=== PATIENT | male | born 1950 | race Caucasian/White ===

== ENCOUNTER 2016-12-31 16:42 | Emergency (ER) | payer MEDICARE ==
[2016-12-31] MEDS ORDERED: Marcaine 0.5% SDV 10 ML IJ ONE (16:56)
[2016-12-31] MEDS ORDERED: Marcaine 0.5% SDV 10 ML ONE (16:57)
[2016-12-31 17:15] VITALS: O2SAT 95
--- NOTE | 2016-12-31 17:25 | ERPHSYRPT ---
- History of Present Illness Time Seen by Provider: 12/31/16 16:46 Source: patient, family Exam Limitations: no limitations Patient Subjective Stated Complaint: PT REPORTS A SHEET OF GLASS FELL OUT OF WINDOW ONTO RIGHT BIG TOE-REPORTS DULL PAIN ET LAC-PT HAS HX OF POOR CIRCULATION TO FOOT Triage Nursing Assessment: PT PINK WARM ET DRY-LAC NOTED WITH BLEEDING CONTROLLED-CAP REFILL 5 SECONDS-EXTREMITY SWOLLEN ET DARKENED-PT REPORTS THIS TO BE NORMAL FOR HIM Physician History: the patient accidentally dropped the window from a door on his right great toe a few minutes ago; no other injuries and no other acute complaints; pain and laceration of the right great toe; mild bleeding; local pain only Method of Injury: direct blow Occurred: just prior to arrival Quality: constant Severity of Pain-Max: severe Severity of Pain-Current: moderate Lower Extremities Pain: 1st toe: right (2.5 cm laceration dorsum proximal phalanx) Modifying Factors: Improves With: cold therapy, immobilization, movement Associated Symptoms: none Allergies/Adverse Reactions: No Known Drug Allergies Allergy (Verified 12/31/16 16:54) Home Medications: Lorazepam 1 mg [Ativan 1 MG] 2 mg TID 09/14/15 [History] Morphine Sulfate [Morphine Sulfate ER] 100 mg TID 09/14/15 [History] Pravastatin Sodium 20 mg DAILY 09/14/15 [History] Prednisone 5 mg [Deltasone 5 mg] 5 mg DAILY 09/14/15 [History] Tamsulosin HCl 0.4 mg [Flomax 0.4 MG] 0.4 mg pe DAILY 09/14/15 [History] Gabapentin [Neurontin] 800 mg PO TID 12/31/16 [History] Hx Tetanus, Diphtheria Vaccination/Date Given: No Hx Influenza Vaccination/Date Given: Yes Hx Pneumococcal Vaccination/Date Given: No Immunizations Up to Date: Yes - Review of Systems Constitutional: No Symptoms Eyes: No Symptoms Ears, Nose, & Throat: No Symptoms Respiratory: No Cough, No Dyspnea, No Wheezing Cardiac: No Chest Pain, No Palpitations, No PND Abdominal/Gastrointestinal: No Abdominal Pain, No Nausea, No Vomiting, No Diarrhea Genitourinary Symptoms: No Symptoms Musculoskeletal: Injury (right great toe), No Neck Pain, No Fall, No Myalgias Skin: Other (2.5 cm laceration right great toe), No Cellulitis, No Rash Neurological: 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), Parasthesia (lower extremities old) Psychological: No Symptoms Endocrine: No Symptoms Hematologic/Lymphatic: No Symptoms Immunological/Allergic: No Symptoms - Past Medical History Pertinent Past Medical History: Yes Neurological History: Peripheral Neuropathy, Other ENT History: No Pertinent History Cardiac History: No Pertinent History Respiratory History: No Pertinent History Endocrine Medical History: No Pertinent History Musculoskeletal History: Osteoarthritis, Fibromyalgia GI Medical History: No Pertinent History History: No Pertinent History Psycho-Social History: No Pertinent History Male Reproductive Disorders: Other Other Medical History: chronic back pain - Past Surgical History Past Surgical History: Yes Neuro Surgical History: No Pertinent History Cardiac: No Pertinent History Respiratory: No Pertinent History Gastrointestinal: No Pertinent History, Other Genitourinary: No Pertinent History Musculoskeletal: No Pertinent History, Orthopedic Surgery Male Surgical History: No Pertinent History Other Surgical History: spinal.l-5 fracture - Social History Smoking Status: Never smoker Exposure to second hand smoke: No Alcohol Use: None Drug Use: none Patient Lives Alone: No Significant Family History: no pertinent family hx - Nursing Vital Signs Nursing Vital Signs: Initial Vital Signs Temperature 98.7 F Temperature Source Oral Pulse Rate 65 Respiratory Rate 22 Blood Pressure [] 131/70 Pain Intensity 1 - Physical Exam General Appearance: mild distress, alert, other (paraplegic from old neck fracture) Legs Exam: bilateral leg: non-tender, normal inspection, normal range of motion , no evidence of injury Knees Exam: bilateral knee: non-tender, normal inspection, normal range of motion, no evidence of injury Ankle Exam: bilateral ankle: non-tender, normal inspection, normal range of motion, no evidence of injury Foot Exam: right foot: bone tenderness (proximal phalanx right great toe), pain (proximal phalanx right great toe), other (2.5 cm laceration dorsum proximal right great toe), left foot: non-tender, normal inspection, normal range of motion, no evidence of injury Neuro/Tendon Exam: responds to pain, No normal sensation Mental Status Exam: alert, oriented x 3, cooperative Skin Exam: normal color, warm, dry, laceration (right great toe), No rash SpO2 Interpretation: normal SpO2: 95 Oxygen Delivery: Room Air Procedures - Laceration/Wound Repair Right Proximal Dorsal Toe Wound Location: Right (great toe) Wound Length (cm): 2.5 Wound's Depth, Shape: linear, into subcut Wound Explored: in bloodless field Irrigated: Yes Hibiclens Prep: Yes Anesthesia: digital block, marcaine 0.5 Volume Anesthetic (ccs): 3 Wound Repaired With: sutures Suture Size/Type: 4-0 Number of Sutures: 3 Layer Closure?: No Sterile Dressing Applied?: Yes - Course Nursing assessment & vital signs reviewed: Yes - Radiology Exams Right Foot X-ray Interpretation: Interpreted by me, Negative, No Fracture Ordered Tests: Active Orders 24 hr Category Date Time Status Prepare for Sutures STAT Care 12/31/16 16:56 Active Re-Check Vital Signs STAT Care 12/31/16 16:56 Active Sutures STAT Care 12/31/16 16:57 Active Wound Care STAT Care 12/31/16 16:56 Active FOOT (MINIMUM 3 VIEWS) Stat Exams 12/31/16 16:57 Taken Medication Summary Discontinued Medications Generic Name Dose Route Start Last Admin Trade Name Freq PRN Reason Stop Dose Admin Bupivacaine HCl 5 ml 12/31/16 16:56 12/31/16 17:00 Marcaine 0.5% Sdv 10 Ml IJ 12/31/16 16:57 5 ml STAT ONE Administration Bupivacaine HCl Confirm 12/31/16 16:57 Marcaine 0.5% Sdv 10 Ml Administered 12/31/16 16:58 Dose 10 ml .ROUTE .STK-MED ONE Diphtheria/Tetanus/Acell Pertussis 0.5 ml 12/31/16 17:30 12/31/16 17:31 Adacel Vial IM 12/31/16 17:31 0.5 ml .ONCE ONE Administration Diphtheria/Tetanus/Acell Pertussis Confirm 12/31/16 17:29 Adacel Vial Administered 12/31/16 17:30 Dose 0.5 ml IM .STK-MED ONE - Progress Progress: improved, re-examined (after x-ray) Progress Note: 12/31/16 17:23 laceration anesthetized with plain Marcaine for pain control; x-ray pending; we' ll clean and repair; at bedside; 12/31/16 17:37 tolerated reapair well; instructions given Counseled pt/family regarding: diagnosis, need for follow-up, rad results - Departure Time of Disposition: 17:38 Departure Disposition: Home Clinical Impression: Laceration of right great toe Condition: Stable Critical Care Time: No Referrals: BJ PAT [Primary Care Provider] - Instructions: Laceration Repair -- Simple Additional Instructions: RICE; Suture removal 7 days; clean, dry, bacitracin; motirn otc Follow-up with family doctor as directed. Call for appointment. Return if any problems. If you smoke please stop. Call or follow up with your family doctor for assistance if you need it to stop. Please wear your seatbelt when driving. Have a nice day. Thank you for allowing us to participate in your care today. :o) Dr Paul Rosario
[2016-12-31] MEDS ORDERED: Adacel Vial IM ONE ×2 (17:29→17:30)
[2016-12-31 17:40] VITALS: BP 128/64; PULSE 61
--- NOTE | 2017-01-01 08:51 | XRAY ---
Indication: Great toe pain/laceration following injury. Comparison: None 3 nonweightbearing views of the right foot demonstrates mild forefoot soft tissue swelling, mild first MTP degenerative changes, distal great toe base osteophyte, tiny heel spurs, midfoot accessory ossicles, lower leg vascular calcifications, and partially visualized tibial orthopedic hardware. No acute fracture, dislocation, or suspicious bony lesions.
== END 2016-12-31 17:45 | disposition home or self-care (01) ==
LOC: ED 16:42
PROC: 0HQMXZZ Repair Right Foot Skin, External Approach (ICD-10-PCS; principal; 2016-12-31)
DX: S91.111A Laceration without foreign body of right great toe without damage to nail, initial encounter (principal); W22.8XXA Striking against or struck by other objects, initial encounter
CPT/HCPCS: 12001; 73630; 90471; 90715; 99282; 99283

== ENCOUNTER 2017-12-30 14:10 | Emergency (ER) | payer MEDICARE ==
[2017-12-30 15:11] VITALS: BP 129/71; O2SAT 96
[2017-12-30] MEDS ORDERED: DUONEB 0.5-3 MG/3 ml Neb IH ONE ×2 (15:22→15:54)
--- NOTE | 2017-12-30 15:26 | ERPHSYRPT ---
- History of Present Illness Time Seen by Provider: 12/30/17 15:14 Source: patient, family () Patient Subjective Stated Complaint: cough, congestion x4 days, denies vomiting , denies diarrhead, denies fever Triage Nursing Assessment: pt to er per own wheelchair, pt has hx of spinal injury 6 years ago, cough and congestion x4 days with green sputum, prior to this had dry cough, fell approx 3 weeks ago out of his wheelchair, struck right ribs on chair wheels, been progressively getting less painful, cough started shortly after the fall Physician History: CC: cough Hx: 67 y/o patient of Dr Neil with partial paraplegia and hx of COPD. He has few day hx of cough, worse with sputum. No fever or chills. Uses inhaler at home. Nonsmoker. Not diabetic. Fell a few weeks ago and had some pain in right. Normal urination. No chest pains. Allergies/Adverse Reactions: No Known Drug Allergies Allergy (Verified 12/31/16 16:54) Home Medications: Lorazepam 1 mg [Ativan 1 MG] 2 mg TID 09/14/15 [History] Pravastatin Sodium 20 mg DAILY 09/14/15 [History] Prednisone 5 mg [Deltasone 5 mg] 5 mg DAILY 09/14/15 [History] Tamsulosin HCl 0.4 mg [Flomax 0.4 MG] 0.4 mg pe DAILY 09/14/15 [History] Gabapentin [Neurontin] 800 mg PO TID 12/31/16 [History] Hx Tetanus, Diphtheria Vaccination/Date Given: No Hx Influenza Vaccination/Date Given: Yes Hx Pneumococcal Vaccination/Date Given: Yes - Review of Systems Constitutional: Fatigue, Malaise, No Fever, No Chills Eyes: No Symptoms Ears, Nose, & Throat: No Symptoms, Nose Congestion Respiratory: Cough, No Dyspnea Cardiac: No Chest Pain Abdominal/Gastrointestinal: No Nausea, No Vomiting Skin: No Rash Neurological: No Headache All Other Systems: Reviewed and Negative - Past Medical History Pertinent Past Medical History: Yes Neurological History: Paralysis ENT History: No Pertinent History Cardiac History: No Pertinent History Respiratory History: Bronchitis Endocrine Medical History: No Pertinent History Musculoskeletal History: Other GI Medical History: No Pertinent History History: No Pertinent History Psycho-Social History: No Pertinent History Male Reproductive Disorders: No Pertinent History Other Medical History: 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 struck head on sink causing cervial fracture, 1994 fell from barn roof and sufered ruptured spleen and fractured spine in three placed - Past Surgical History Past Surgical History: Yes Neuro Surgical History: No Pertinent History Cardiac: No Pertinent History Respiratory: No Pertinent History Gastrointestinal: No Pertinent History Genitourinary: No Pertinent History Musculoskeletal: Other Male Surgical History: No Pertinent History Other Surgical History: spinal surgery, plate and screws right lower leg - Social History Smoking Status: Former smoker Exposure to second hand smoke: No Alcohol Use: None Drug Use: none Patient Lives Alone: No Significant Family History: no pertinent family hx - Nursing Vital Signs Nursing Vital Signs: Initial Vital Signs Temperature 98.0 F 12/30/17 15:03 Pulse Rate 66 12/30/17 15:03 Respiratory Rate 22 12/30/17 15:03 Blood Pressure 129/71 12/30/17 15:03 O2 Sat by Pulse Oximetry 96 12/30/17 15:03 Pain Scale Pain Intensity 0 - Physical Exam General Appearance: alert Eye Exam: PERRL/EOMI Ears, Nose, Throat Exam: normal ENT inspection, moist mucous membranes Neck Exam: normal inspection, non-tender, supple Respiratory Exam: diminished breath sounds, No crackles/rales, No rhonchi, No wheezing Cardiovascular Exam: regular rate/rhythm, No murmur Gastrointestinal/Abdomen Exam: soft, No tenderness, No distention, No mass, No guarding, No ecchymosis Male Genitalia Exam: normal genitalia Back Exam: normal inspection Extremity Exam: pedal edema Neurologic Exam: alert, oriented x 3, cooperative, sensation nml, No motor deficits Skin Exam: warm, dry, No rash SpO2 Interpretation: normal SpO2: 96 Oxygen Delivery: Room Air - Course Nursing assessment & vital signs reviewed: Yes - Radiology Exams cxr X-ray Interpretation: Reviewed by me, No Pneumonia Ordered Tests: Active Orders 24 hr Category Date Time Status CHEST 2 VIEWS (PA AND LAT) Stat Exams 12/30/17 15:23 Taken Respiratory Nebulizer STAT RT 12/30/17 15:23 Active Medication Summary Discontinued Medications Generic Name Dose Route Start Last Admin Trade Name Freq PRN Reason Stop Dose Admin Albuterol/Ipratropium 3 ml 12/30/17 15:22 12/30/17 15:56 Duoneb 0.5-3 Mg/3 Ml Neb IH 12/30/17 15:23 3 ml STAT ONE Administration Albuterol/Ipratropium Confirm 12/30/17 15:54 Duoneb 0.5-3 Mg/3 Ml Neb Administered 12/30/17 15:55 Dose 3 ml IH .STK-MED ONE - Progress Progress Note: 12/30/17 16:00 Will Rx prednisone and doxy. He has inhaler. RT making sure he has aerochamber. Dr Neil office will see him Friday at 10:30AM [place]. Counseled pt/family regarding: diagnosis, need for follow-up, rad results - Departure Time of Disposition: 16:00 Departure Disposition: Home Clinical Impression: Acute exacerbation of chronic bronchitis Condition: Stable Critical Care Time: No Referrals: ZEUS NEIL MD [Primary Care Provider] - Instructions: Acute Bronchitis, Adult (DC), Chronic Obstructive Pulmonary Disease (COPD), Including Emphysema Additional Instructions: Rx doxycycline- [facility] Rx prednisone- [facility] Use your albuterol inhaler every 4 [address]. Follow up with Dr Neil at [place] office Friday at 10:30 AM. Return for problems or concerns. Prescriptions: Doxycycline Hyclate 100 mg [Vibramycin 100 MG] 100 mg PO BID #20 tab Prednisone 20 mg [Deltasone 20 mg] 2 tab PO DAILY #10 tablet
[2017-12-30 16:08] VITALS: PULSE 62
--- NOTE | 2017-12-30 16:15 | XRAY ---
Indication: Cough 5 days. Comparison: September 14, 2015. PA/lateral chest remains hyperinflated and clear. Heart is not enlarged. Bony thorax intact again with mild osteopenia, degenerative changes, and new lower cervical fusion hardware. Impression: Nonacute hyperinflated chest.
== END 2017-12-30 16:47 | disposition home or self-care (01) ==
LOC: ED 14:10
DX: J44.1 Chronic obstructive pulmonary disease with (acute) exacerbation (principal); G82.20 Paraplegia, unspecified; Z79.899 Other long term (current) drug therapy; Z87.891 Personal history of nicotine dependence
CPT/HCPCS: 71046; 94150; 94640; 94760; 99283; A9270-GY

== ENCOUNTER 2018-12-01 09:48 | Emergency (ER) | payer MEDICARE ==
[2018-12-01] MEDS ORDERED: BABY ASPIRIN 81 MG CHEW PO ONE (10:10)
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
[2018-12-01 10:34] LABS: BASOPHIL % 0.6 % (0.0-0.4); Basophil (Absolute #) 0.06 (0-0.4); Eosinophil % 6.9 % (0.00-5.0); Eosinophil (Absolute #) 0.66 (0-0.5); Granulocyte Absolute (ANC) 4.63 (1.4-6.9); Granulocytes % 48.6 % (36.0-66.0); Hematocrit 38.5 % (42-50); Hemoglobin 13.2 gm/dl (12.5-18.0); Lymphocytes % 33.6 % (24.0-44.0); Mean Corpuscular Hemoglobin 32.9 pg (26-32); Mean Corpuscular Hgb Concent. 34.3 g/dl (32-36); Mean Platelet Volume 9.5 fl (6-9.5); Monocyte (Absolute #) 0.98 (0.0-1.3); Monocytes % 10.3 % (0.0-12.0); Platelet Count 210 K/mm3 (150-450); Red Blood Count 4.01 M/mm3 (4.1-5.6); Red Cell Distribution Width 12.6 % (11.5-14.0); White Blood Count 9.5 K/mm3 (4.0-10.5)
--- NOTE | 2018-12-01 10:38 | XRAY ---
Indication: Right-sided chest pain. Comparison: December 30, 2017. Portable chest again demonstrates normal heart and lungs. Bony thorax intact again with moderate degenerative changes and lower cervical fusion surgery. No new/acute findings.
[2018-12-01 10:40] LABS: INR 0.9 (0.8-3.0); PROTIME 10.5 SECONDS (8.83-12.87)
[2018-12-01 10:43] LABS: PTT 26.5 SECONDS (24.1-36.1)
[2018-12-01 10:53] LABS: ALKALINE PHOSPHATASE 61 U/L (38-126); ANION GAP 11.8 MEQ/L (5-15); BLOOD UREA NITROGEN 17 mg/dL (9-20); CHLORIDE 101 mmol/L (98-107); Calcium 9.2 mg/dL (8.4-10.2); Carbon Dioxide 28 mmol/L (22-30); Creatinine 1 0.92 mg/dL (0.66-1.25); Glucose 90 mg/dL (74-106); NT PRO BNP 151 pg/mL (0-900); SGOT/AST 35 U/L (17-59); SGPT/ALT 25 U/L (0-50); SODIUM 137 mmol/L (137-145); Total Protein 7.1 g/dL (6.3-8.2)
[2018-12-01 12:11] VITALS: O2SAT 97
--- NOTE | 2018-12-01 12:11 | XRAY ---
Indication: Chest pain, short of breath, and congestion. Elevated d-dimer. Multiple contiguous axial images obtained through the chest using 80 cc Isovue 370 contrast and PE protocol. Comparison: None There is satisfactory opacification of the pulmonary arteries to includes the lobar and segmental branches. No filling defect or pulmonary embolus. Heart is not enlarged. Aorta is normal in course and caliber. No pathologic mediastinal/hilar lymphadenopathy. Lungs demonstrates mild bilateral dependent atelectasis. No suspicious pulmonary mass, infiltrate, or effusion. Bony thorax demonstrates moderate degenerative changes throughout the spine. Limited upper abdomen demonstrates a few gallstones, largest 1.3 cm. Also partially visualized 7 cm right renal cyst. Impression: 1. Negative pulmonary embolus. No acute cardiopulmonary abnormalities. 2. Incidental gallstones and partially visualized right renal cyst. CT DI 28.14
--- NOTE | 2018-12-01 12:16 | XRAY ---
Indication: Bilateral leg swelling. Elevated d-dimer. Two-dimensional sonogram and color Doppler imaging of the major venous vessels of the left and right leg was performed. Comparison: August 12, 2014. Again no thrombus seen in the examined deep venous vessels of the left and right leg including greater saphenous veins. Veins demonstrate normal compressibility. Venous waveforms are normal with and without augmentation. Impression: Left and right legs again negative for DVT.
[2018-12-01] MEDS ORDERED: TYLENOL 325 MG PO ONE (12:29)
[2018-12-01] MEDS ORDERED: Zithromax 250 MG TABLET PO ONE (12:30)
[2018-12-01] MEDS ORDERED: TYLENOL 325 MG ONE (12:34)
[2018-12-01] MEDS ORDERED: Zithromax 250 MG TABLET ONE (12:34)
[2018-12-01 12:53] VITALS: BP 146/70; PULSE 51
== END 2018-12-01 13:18 | disposition home or self-care (01) ==
LOC: ED 09:48
DX: R07.89 Other chest pain (principal); R60.9 Edema, unspecified; L97.919 Non-pressure chronic ulcer of unspecified part of right lower leg with unspecified severity; G82.20 Paraplegia, unspecified; J44.9 Chronic obstructive pulmonary disease, unspecified; Z79.899 Other long term (current) drug therapy
CPT/HCPCS: 36000; 36415; 71045; 71260; 80053; 83880; 84484; 85025; 85379; 85610; 85730; 93005; 93041; 93970; 99284; A9270-GY

== ENCOUNTER 2019-03-08 18:11 | Observation (INO) | payer MEDICARE ==
[2019-03-08] MEDS ORDERED: Vancomycin 1GM/ Ns 250ML*** 1 GM/250 ML IVPB IV ONE (19:43)
[2019-03-08] MEDS ORDERED: Sodium Chloride 0.9% 1000 ML 1,000 ML IV SCH ×2 (19:45→22:15)
--- NOTE | 2019-03-08 19:52 | ERPHSYRPT ---
- History of Present Illness Time Seen by Provider: 03/08/19 19:06 Source: patient Exam Limitations: clinical condition Patient Subjective Stated Complaint: states has ulceration on right lower leg for one month. has gotten worse over the past five days. states is now draining clear fluid. Triage Nursing Assessment: to room per w/c. patient is w/c bound from accident years ago. skin w/d, color normal. has 3cm by 2cm open ulcer to right lower leg. culture taken. small amt clear drainage noted. 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 PATIENT COMPLAINS OF MARKED SWELLING OF RIGHT CHAPA AND CALF, DENIES FEVER OR CHILLS. Method of Injury: other (DENIES INJURY) Occurred: last week Quality: constant Severity of Pain-Max: moderate Severity of Pain-Current: moderate Lower Extremities Pain: leg: right Modifying Factors: Improves With: movement Associated Symptoms: other (PAIN) Allergies/Adverse Reactions: No Known Drug Allergies Allergy (Verified 03/08/19 18:45) Home Medications: Pravastatin Sodium 20 mg PO DAILY 09/14/15 [History] Prednisone 5 mg [Deltasone 5 mg] 5 mg PO DAILY 09/14/15 [History] Tamsulosin HCl 0.4 mg [Flomax 0.4 MG] 0.4 mg PO HS 09/14/15 [History] Gabapentin [Neurontin] 1,200 mg PO TID 12/31/16 [History] ALPRAZolam [Alprazolam] 2 mg PO TID 03/08/19 [History] Furosemide 40 mg PO DAILY 03/08/19 [History] Hx Tetanus, Diphtheria Vaccination/Date Given: Yes Hx Influenza Vaccination/Date Given: Yes Hx Pneumococcal Vaccination/Date Given: No - Review of Systems Constitutional: No Fever, No Chills Eyes: No Symptoms Ears, Nose, & Throat: No Symptoms Respiratory: No Symptoms, No Cough, No Dyspnea Cardiac: No Symptoms, No Chest Pain, No Edema, No Syncope Abdominal/Gastrointestinal: No Abdominal Pain, No Nausea, No Vomiting, No Diarrhea Genitourinary Symptoms: No Symptoms, No Dysuria Musculoskeletal: Other (PAIN, SWELLING AND REDNESS), No Back Pain, No Neck Pain Skin: No Rash Neurological: No Dizziness, No Focal Weakness, No Sensory Changes Psychological: No Symptoms Endocrine: No Symptoms All Other Systems: Reviewed and Negative - Past Medical History Pertinent Past Medical History: Yes Neurological History: Paralysis ENT History: No Pertinent History Cardiac History: No Pertinent History Respiratory History: Bronchitis Endocrine Medical History: No Pertinent History Musculoskeletal History: Other GI Medical History: No Pertinent History History: No Pertinent History Psycho-Social History: No Pertinent History Male Reproductive Disorders: No Pertinent History Other Medical History: 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 struck head on sink causing cervial fracture, 1994 fell from barn roof and sufered ruptured spleen and fractured spine in three placed - Past Surgical History Past Surgical History: Yes Neuro Surgical History: No Pertinent History Cardiac: No Pertinent History Respiratory: No Pertinent History Gastrointestinal: No Pertinent History Genitourinary: No Pertinent History Musculoskeletal: Other Male Surgical History: No Pertinent History Other Surgical History: spinal surgery, plate and screws right lower leg - Social History Smoking Status: Former smoker Exposure to second hand smoke: No Alcohol Use: None Drug Use: none Patient Lives Alone: No Significant Family History: no pertinent family hx - Nursing Vital Signs Nursing Vital Signs: Initial Vital Signs Temperature 98.5 F 03/08/19 18:39 Pulse Rate 63 03/08/19 18:39 Respiratory Rate 18 03/08/19 18:39 Blood Pressure 122/65 03/08/19 18:39 O2 Sat by Pulse Oximetry 97 03/08/19 18:39 Pain Scale Pain Intensity 3 - Physical Exam General Appearance: no apparent distress Eyes, Ears, Nose, Throat Exam: normal ENT inspection Neck Exam: normal inspection Cardiovascular/Respiratory Exam: chest non-tender, normal breath sounds Back Exam: normal inspection, normal range of motion Legs Exam: right leg: pain, soft tissue tenderness (THERE IS A 3CM X 6CM ULCERATION WITH CLEAR DRAINAGE, SURROUNDING SWELLING, WARMTH AND ERYTHEMA, CIRCUMFERENCE RIGHT MID CHAPA 37CM COMPARED TO LEFT MID CHAPA CIRCUMFERENCE 32CM) , swelling (MODERAT CALF TENDERNESS) Foot Exam: bilateral foot: other (PEDIS PULSES 2+) Neuro/Tendon Exam: motor deficit (LOWER BILATERAL EXTREMITY PARESIS), sensory deficit Mental Status Exam: alert, oriented x 3 Skin Exam: normal color, warm SpO2: 97 - Radiology Ultrasound Exam Right Venous Lower Extremity Ultrasound: discussed w/radiologist (VENOUS DOPPLER NEGATIVE FOR DVT) Ordered Tests: Active Orders 24 hr Category Date Time Status Up With Assistance ROUTINE Activity 03/08/19 22:10 Ordered Code Status Order ROUTINE Care 03/08/19 22:10 Ordered IV Care Q6H Care 03/08/19 22:10 Ordered IV Insertion STAT Care 03/08/19 19:[address] in Observation ROUTINE Care 03/08/19 22:11 Ordered Vital Signs Q4H Care 03/08/19 22:10 Ordered Regular Diet Diet 03/08/19 Breakfast Ordered VENOUS UNILAT/LIMITED EXTREMIT [US] Stat Exams 03/08/19 Ordered BLOOD CULTURE Stat Lab 03/08/19 20:10 Received CBC W DIFF Stat Lab 03/08/19 19:55 Completed CMP Stat Lab 03/08/19 19:55 Completed CULTURE,WOUND Stat Lab 03/08/19 19:00 Received D-DIMER QUANTITATION Stat Lab 03/08/19 19:55 Completed PT INR [PROTIME WITH INR] Stat Lab 03/08/19 19:55 Completed Transfer Order Routine Transfer 03/08/19 Ordered Medication Summary Generic Name Dose Route Start Last Admin Trade Name Freq PRN Reason Stop Dose Admin Sodium Chloride 1,000 mls @ 250 mls/hr 03/08/19 19:45 03/08/19 20:05 Sodium Chloride 0.9% 1000 Ml IV 04/07/19 19:44 250 mls/hr .Q4H RODRIGUEZ Administration Piperacillin Sod/Tazobactam Sod 3.375 gm in 100 mls @ 200 mls/hr 03/08/19 21: 58 Zosyn 3.375gm/100 Ml D5w IV 03/08/19 22:27 STAT STA Discontinued Medications Generic Name Dose Route Start Last Admin Trade Name Freq PRN Reason Stop Dose Admin Vancomycin HCl 1 gm in 250 mls @ 167 mls/hr 03/08/19 19:43 03/08/19 20:09 Vancomycin 1gm/ Ns 250ml IV 03/08/19 21:12 167 mls/hr STAT ONE Administration Vancomycin HCl Confirm 03/08/19 20:01 Vancomycin 1gm/ Ns 250ml Administered 03/08/19 20:02 Dose 250 mls @ ud IV .STK-MED ONE Morphine Sulfate 4 mg 03/08/19 21:59 Morphine Sulfate 4 Mg Inj IV 03/08/19 22:00 STAT ONE Ondansetron HCl 4 mg 03/08/19 21:59 Zofran 4 Mg/2 Ml Vial IV 03/08/19 22:00 STAT ONE Lab/Rad Data: Laboratory Result Diagrams 03/08/19 19:55 03/08/19 19:55 Laboratory Results 03/08/19 03/08/19 03/08/19 Range/Units 19:55 19:55 19:55 WBC (4.0-10.5) K/mm3 RBC (4.1-5.6) M/mm3 Hgb (12.5-18.0) gm/dl Hct (42-50) % MCV (78-100) fl MCH (26-32) pg MCHC (32-36) g/dl RDW (11.5-14.0) % Plt Count (150-450) K/mm3 MPV (6-9.5) fl Gran % (36.0-66.0) % Eos # (Auto) (0-0.5) Absolute Lymphs (auto) (1.0-4.6) Absolute Monos (auto) (0.0-1.3) Lymphocytes % (24.0-44.0) % Monocytes % (0.0-12.0) % Eosinophils % (0.00-5.0) % Basophils % (0.0-0.4) % Absolute Granulocytes (1.4-6.9) Basophils # (0-0.4) PT 10.8 (8.83-12.87) SECONDS INR 0.93 (0.8-3.0) D-Dimer 529 H* (215-500) ng/mL Sodium 139 (137-145) mmol/L Potassium 4.2 (3.5-5.1) mmol/L Chloride 100 (98-107) mmol/L Carbon Dioxide 31 H (22-30) mmol/L Anion Gap 12.7 (5-15) MEQ/L BUN 16 (9-20) mg/dL Creatinine 0.96 (0.66-1.25) mg/dL Estimated GFR > 60.0 ML/MIN Glucose 87 (74-106) mg/dL Calcium 9.8 (8.4-10.2) mg/dL Total Bilirubin 0.60 (0.2-1.3) mg/dL AST 33 (17-59) U/L ALT 23 (0-50) U/L Alkaline Phosphatase 65 (38-126) U/L Serum Total Protein 7.7 (6.3-8.2) g/dL Albumin 4.2 (3.5-5.0) g/dL 03/08/19 Range/Units 19:55 WBC 9.8 (4.0-10.5) K/mm3 RBC 4.31 (4.1-5.6) M/mm3 Hgb 14.0 (12.5-18.0) gm/dl Hct 41.5 L (42-50) % MCV 96.3 (78-100) fl MCH 32.5 H (26-32) pg MCHC 33.7 (32-36) g/dl RDW 12.9 (11.5-14.0) % Plt Count 202 (150-450) K/mm3 MPV 9.5 (6-9.5) fl Gran % 59.2 (36.0-66.0) % Eos # (Auto) 0.59 H (0-0.5) Absolute Lymphs (auto) 2.38 (1.0-4.6) Absolute Monos (auto) 0.99 (0.0-1.3) Lymphocytes % 24.4 (24.0-44.0) % Monocytes % 10.1 (0.0-12.0) % Eosinophils % 6.0 H (0.00-5.0) % Basophils % 0.3 (0.0-0.4) % Absolute Granulocytes 5.78 (1.4-6.9) Basophils # 0.03 (0-0.4) PT (8.83-12.87) SECONDS INR (0.8-3.0) D-Dimer (215-500) ng/mL Sodium (137-145) mmol/L Potassium (3.5-5.1) mmol/L Chloride (98-107) mmol/L Carbon Dioxide (22-30) mmol/L Anion Gap (5-15) MEQ/L BUN (9-20) mg/dL Creatinine (0.66-1.25) mg/dL Estimated GFR ML/MIN Glucose (74-106) mg/dL Calcium (8.4-10.2) mg/dL Total Bilirubin (0.2-1.3) mg/dL AST (17-59) U/L ALT (0-50) U/L Alkaline Phosphatase (38-126) U/L Serum Total Protein (6.3-8.2) g/dL Albumin (3.5-5.0) g/dL - Progress Progress: improved Progress Note: 03/08/19 22:17 AFTER 2 SETS F BLOOD CULTURES, ADMINISTERED VANCOMYCIN 1GM IVPB Discussed with DrNeymar: Palomo (DISCUSSED WITH DR NEIL AT 2120 FOR OBSERVATION) - Departure Departure Disposition: Observation Clinical Impression: CELLULITIS RIGHT LOWER EXTREMITY, DECUBITUS ULCERATION RIGHT LEG Condition: Stable Critical Care Time: No Referrals: ZEUS NEIL MD [Primary Care Provider] -
[2019-03-08] MEDS ORDERED: Sodium Chloride 0.9% 1000 ML 1,000 ML ONE (20:01)
[2019-03-08] MEDS ORDERED: Vancomycin 1GM/ Ns 250ML*** 250 ML IV ONE (20:01)
[2019-03-08 20:15] LABS: BASOPHIL % 0.3 % (0.0-0.4); Basophil (Absolute #) 0.03 (0-0.4); Eosinophil (Absolute #) 0.59 (0-0.5); Granulocyte Absolute (ANC) 5.78 (1.4-6.9); Granulocytes % 59.2 % (36.0-66.0); Hematocrit 41.5 % (42-50); Lymphocyte (Absolute #) 2.38 (1.0-4.6); Lymphocytes % 24.4 % (24.0-44.0); Mean Cell Volume 96.3 fl (78-100); Mean Corpuscular Hemoglobin 32.5 pg (26-32); Mean Corpuscular Hgb Concent. 33.7 g/dl (32-36); Mean Platelet Volume 9.5 fl (6-9.5); Monocyte (Absolute #) 0.99 (0.0-1.3); Monocytes % 10.1 % (0.0-12.0); Platelet Count 202 K/mm3 (150-450); Red Blood Count 4.31 M/mm3 (4.1-5.6); Red Cell Distribution Width 12.9 % (11.5-14.0); White Blood Count 9.8 K/mm3 (4.0-10.5)
[2019-03-08 20:29] LABS: ALBUMIN 4.2 g/dL (3.5-5.0); ALKALINE PHOSPHATASE 65 U/L (38-126); ANION GAP 12.7 MEQ/L (5-15); BLOOD UREA NITROGEN 16 mg/dL (9-20); CHLORIDE 100 mmol/L (98-107); Calcium 9.8 mg/dL (8.4-10.2); Carbon Dioxide 31 mmol/L (22-30); Creatinine 1 0.96 mg/dL (0.66-1.25); Glucose 87 mg/dL (74-106); Potassium 4.2 mmol/L (3.5-5.1); SGOT/AST 33 U/L (17-59); SGPT/ALT 23 U/L (0-50); SODIUM 139 mmol/L (137-145); Total Protein 7.7 g/dL (6.3-8.2)
[2019-03-08 20:34] LABS: INR 0.93 (0.8-3.0); PROTIME 10.8 SECONDS (8.83-12.87)
[2019-03-08] MEDS ORDERED: Zosyn 3.375GM/100 Ml D5W 3.375 GM/100 ML IVPB IV STA (21:58)
[2019-03-08] MEDS ORDERED: Zofran 4 MG/2 ML VIAL IV ONE (21:59)
[2019-03-08] MEDS ORDERED: MORPHINE SULFATE 4 MG INJ IV ONE (21:59)
[2019-03-08] MEDS ORDERED: MORPHINE SULFATE 2 MG INJ IV PRN (22:10)
[2019-03-08] MEDS ORDERED: TYLENOL 325 MG PO PRN (22:10)
[2019-03-08] MEDS ORDERED: NORCO 5/325 MG PO PRN (22:16)
[2019-03-08] MEDS ORDERED: VANCOCIN 1 GM VIAL*** 1 GM in Sodium Chloride 0.9% 250 ML 250 ML IV SCH (22:30)
[2019-03-08] MEDS ORDERED: Zosyn 3.375GM/100 Ml D5W 3.375 GM/100 ML IVPB IV ONE (22:42)
[2019-03-08] MEDS ORDERED: Zofran 4 MG/2 ML VIAL ONE (22:42)
[2019-03-08] MEDS ORDERED: MORPHINE SULFATE 4 MG INJ ONE (22:42)
[2019-03-09] MEDS ORDERED: Zosyn 3.375GM/100 Ml D5W 3.375 GM/100 ML IVPB IV SCH
[2019-03-09] MEDS: Sodium Chloride 0.9% 1000 ML 1,000 ML IV SCH ×3 (00:05→14:22)
[2019-03-09] MEDS ORDERED: Sodium Chloride 0.9% 1000 ML 1,000 ML ONE (00:36)
[2019-03-09] MEDS ORDERED: NEURONTIN 300 MG ONE (01:16)
[2019-03-09] MEDS ORDERED: XANAX 1 MG PO ONE (02:00)
[2019-03-09] MEDS ORDERED: Flomax 0.4 MG PO ONE (02:00)
[2019-03-09] MEDS ORDERED: Neurontin 400 MG PO ONE (02:00)
[2019-03-09] MEDS ORDERED: TYLENOL 325 MG PO PRN (02:05)
[2019-03-09] MEDS ORDERED: MORPHINE SULFATE 2 MG INJ IV PRN (02:08)
[2019-03-09] MEDS: Zosyn 3.375GM/100 Ml D5W 3.375 GM/100 ML IVPB IV SCH ×4 (05:38→23:17)
--- NOTE | 2019-03-09 08:33 | XRAY ---
Indication: Edema, elevated d-dimer, and ulcer. Two-dimensional sonogram and color Doppler imaging of the major venous vessels of the right leg was performed. Comparison: December 01, 2018. Again no thrombus seen in the examined deep venous vessels of the right leg including greater saphenous vein. Veins demonstrate normal compressibility. Venous waveforms are normal with and without augmentation. Calf demonstrates mild subcutaneous soft tissue edema without focal solid/cystic mass or abnormal fluid collection. Impression: Right leg again negative for DVT. Comment: Preliminary report was given.
--- NOTE | 2019-03-09 09:13 | PCM.HP ---
History of Present Illness - Chief Complaint Chief Complaint: swelling on legs History of Present Illness: is a 68 year old male. has ulceration on right lower leg for one month. has gotten worse over the past five days. states is now draining clear fluid. - Review of Systems Constitutional: No Fever, No Chills Eyes: No Symptoms Ears, Nose, & Throat: No Symptoms Respiratory: No Cough, No Short Of Breath Cardiac: No Chest Pain, No Edema, No Syncope Abdominal/Gastrointestinal: No Abdominal Pain, No Nausea, No Vomiting, No Diarrhea Genitourinary Symptoms: No Dysuria Musculoskeletal: No Back Pain, No Neck Pain Skin: Cellulitis, No Rash Neurological: No Dizziness, No Focal Weakness, No Sensory Changes Psychological: No Symptoms Endocrine: No Symptoms Hematologic/Lymphatic: No Symptoms Immunological/Allergic: No Symptoms Medications & Allergies Home Medications: Home Medication List Pravastatin Sodium 20 mg PO DAILY 09/14/15 [History Confirmed 03/09/19] Prednisone 5 mg [Deltasone 5 mg] 5 mg PO DAILY 09/14/15 [History Confirmed 03/09/19] Tamsulosin HCl 0.4 mg [Flomax 0.4 MG] 0.4 mg PO HS 09/14/15 [History Confirmed 03/09/19] Gabapentin [Neurontin] 1,200 mg PO TID 12/31/16 [History Confirmed 03/09/19] ALPRAZolam [Alprazolam] 2 mg PO TID 03/08/19 [History Confirmed 03/09/19] Furosemide 40 mg PO DAILY 03/08/19 [History Confirmed 03/09/19] Allergies/Adverse Reactions: Allergies Allergy/AdvReac Type Severity Reaction Status Date / Time No Known Drug Allergies Allergy Verified 03/08/19 18:45 - Past Medical History Past Medical History: Yes Neurological History: Paralysis ENT History: No Pertinent History Cardiac History: No Pertinent History Respiratory History: Bronchitis Endocrine Medical History: No Pertinent History Musculoskelatal History: Other GI Medical History: No Pertinent History History: No Pertinent History Pyscho-Social History: No Pertinent History Male Reproductive Disorders: No Pertinent History Comment: 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 struck head on sink causing cervial fracture, 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 - Past Surgical History Past Surgical History: Yes Neuro Surgical History: No Pertinent History Cardiac History: No Pertinent History Respiratory Surgery: No Pertinent History GI Surgical History: No Pertinent History Genitourinary Surgical Hx: No Pertinent History Musculskeletal Surgical Hx: Other Male Surgical History: No Pertinent History Other Surgical History: spinal surgery, plate and screws right lower leg, ruptured disk surgery through neck - Social History Smoking Status: Former smoker Exposure to second hand smoke: Yes Alcohol: None Drug Use: none Significant Family History: no pertinent family hx - Physical Exam Vital Signs: Vital Signs - 24 hr Temp Pulse Resp BP Pulse Ox 03/09/19 08:00 98.1 F 66 18 139/63 96 03/09/19 04:00 97.8 F 61 18 131/63 93 L 03/08/19 23:30 98.3 F 60 18 143/63 95 03/08/19 23:20 98.3 F 60 18 143/63 95 03/08/19 22:40 63 18 156/78 96 03/08/19 22:17 97 03/08/19 18:39 98.5 F 63 18 122/65 97 General Appearance: no apparent distress, alert Neurologic Exam: alert, oriented x 3, cooperative, normal mood/affect, nml cerebellar function, nml station & gait, sensation nml, No motor deficits Eye Exam: PERRL/EOMI, eyes nml inspection Ears, Nose, Throat Exam: normal ENT inspection, TMs normal, pharynx normal, moist mucous membranes Neck Exam: normal inspection, non-tender, supple, full range of motion Respiratory Exam: normal breath sounds, lungs clear, No respiratory distress Cardiovascular Exam: regular rate/rhythm, normal heart sounds, normal peripheral pulses Gastrointestinal/Abdomen Exam: soft, normal bowel sounds, No tenderness, No mass Back Exam: normal inspection, normal range of motion, No CVA tenderness, No vertebral tenderness Extremity Exam: normal inspection, normal range of motion, pelvis stable Skin Exam: other (cellulitis), No rash Lymphatic Exam: No adenopathy Results - Labs Lab/Micro Results: Lab Results-Last 24 Hours 03/08/19 03/08/19 03/08/19 Range/Units 19:55 19:55 19:55 WBC 9.8 (4.0-10.5) K/mm3 RBC 4.31 (4.1-5.6) M/mm3 Hgb 14.0 (12.5-18.0) gm/dl Hct 41.5 L (42-50) % MCV 96.3 (78-100) fl MCH 32.5 H (26-32) pg MCHC 33.7 (32-36) g/dl RDW 12.9 (11.5-14.0) % Plt Count 202 (150-450) K/mm3 MPV 9.5 (6-9.5) fl Gran % 59.2 (36.0-66.0) % Eos # (Auto) 0.59 H (0-0.5) Absolute Lymphs (auto) 2.38 (1.0-4.6) Absolute Monos (auto) 0.99 (0.0-1.3) Lymphocytes % 24.4 (24.0-44.0) % Monocytes % 10.1 (0.0-12.0) % Eosinophils % 6.0 H (0.00-5.0) % Basophils % 0.3 (0.0-0.4) % Absolute Granulocytes 5.78 (1.4-6.9) Basophils # 0.03 (0-0.4) PT (8.83-12.87) SECONDS INR (0.8-3.0) D-Dimer 529 H* (215-500) ng/mL Sodium 139 (137-145) mmol/L Potassium 4.2 (3.5-5.1) mmol/L Chloride 100 (98-107) mmol/L Carbon Dioxide 31 H (22-30) mmol/L Anion Gap 12.7 (5-15) MEQ/L BUN 16 (9-20) mg/dL Creatinine 0.96 (0.66-1.25) mg/dL Estimated GFR > 60.0 ML/MIN Glucose 87 (74-106) mg/dL Calcium 9.8 (8.4-10.2) mg/dL Total Bilirubin 0.60 (0.2-1.3) mg/dL AST 33 (17-59) U/L ALT 23 (0-50) U/L Alkaline Phosphatase 65 (38-126) U/L Serum Total Protein 7.7 (6.3-8.2) g/dL Albumin 4.2 (3.5-5.0) g/dL 05/13/19 Range/Units 19:55 WBC (4.0-10.5) K/mm3 RBC (4.1-5.6) M/mm3 Hgb (12.5-18.0) gm/dl Hct (42-50) % MCV (78-100) fl MCH (26-32) pg MCHC (32-36) g/dl RDW (11.5-14.0) % Plt Count (150-450) K/mm3 MPV (6-9.5) fl Gran % (36.0-66.0) % Eos # (Auto) (0-0.5) Absolute Lymphs (auto) (1.0-4.6) Absolute Monos (auto) (0.0-1.3) Lymphocytes % (24.0-44.0) % Monocytes % (0.0-12.0) % Eosinophils % (0.00-5.0) % Basophils % (0.0-0.4) % Absolute Granulocytes (1.4-6.9) Basophils # (0-0.4) PT 10.8 (8.83-12.87) SECONDS INR 0.93 (0.8-3.0) D-Dimer (215-500) ng/mL Sodium (137-145) mmol/L Potassium (3.5-5.1) mmol/L Chloride (98-107) mmol/L Carbon Dioxide (22-30) mmol/L Anion Gap (5-15) MEQ/L BUN (9-20) mg/dL Creatinine (0.66-1.25) mg/dL Estimated GFR ML/MIN Glucose (74-106) mg/dL Calcium (8.4-10.2) mg/dL Total Bilirubin (0.2-1.3) mg/dL AST (17-59) U/L ALT (0-50) U/L Alkaline Phosphatase (38-126) U/L Serum Total Protein (6.3-8.2) g/dL Albumin (3.5-5.0) g/dL - Radiology Impressions Radiology Exams & Impressions: Radiology Procedures Category Date Time Status VENOUS UNILAT/LIMITED EXTREMIT [US] Stat Exams 03/08/19 22:18 Completed
[2019-03-09] MEDS: NEURONTIN 300 MG PO SCH ×3 (09:38→22:07)
[2019-03-09] MEDS: Lasix 40 MG PO SCH (09:38)
[2019-03-09] MEDS: ENOXAPARIN SODIUM SQ SCH (09:38)
[2019-03-09] MEDS: NORCO 5/325 MG PO PRN ×2 (09:50→19:54)
[2019-03-09] MEDS ORDERED: NEURONTIN 300 MG PO SCH (10:00)
[2019-03-09] MEDS ORDERED: ENOXAPARIN SODIUM SQ SCH (10:00)
[2019-03-09] MEDS ORDERED: Lasix 40 MG PO SCH (10:00)
[2019-03-09] MEDS: VANCOCIN 1 GM VIAL*** 1.25 GM in Sodium Chloride 0.9% 250 ML 250 ML IV SCH ×2 (10:27→22:07)
[2019-03-09] MEDS ORDERED: Vancomycin 1GM/ Ns 250ML*** 1 GM/250 ML IVPB IV SCH (20:00)
[2019-03-10] MEDS: Zosyn 3.375GM/100 Ml D5W 3.375 GM/100 ML IVPB IV SCH ×2 (05:23→12:46)
[2019-03-10] MEDS: ENOXAPARIN SODIUM SQ SCH (10:06)
[2019-03-10] MEDS: NEURONTIN 300 MG PO SCH ×3 (10:07→21:37)
[2019-03-10] MEDS: Lasix 40 MG PO SCH (10:07)
[2019-03-10] MEDS: VANCOCIN 1 GM VIAL*** 1.25 GM in Sodium Chloride 0.9% 250 ML 250 ML IV SCH (10:07)
--- NOTE | 2019-03-10 13:23 | PCM.NOTE ---
Date and Time: 03/10/19 1322 Subjective Assessment: doing ok - Review of Systems Constitutional: No Fever, No Chills Eyes: No Symptoms Ears, Nose, & Throat: No Symptoms Respiratory: No Cough, No Short Of Breath Cardiac: No Chest Pain, No Edema, No Syncope Abdominal/Gastrointestinal: No Abdominal Pain, No Nausea, No Vomiting, No Diarrhea Genitourinary Symptoms: No Dysuria Musculoskeletal: No Back Pain, No Neck Pain Skin: No Rash Neurological: No Dizziness, No Focal Weakness, No Sensory Changes Psychological: No Symptoms Endocrine: No Symptoms Hematologic/Lymphatic: No Symptoms Immunological/Allergic: No Symptoms Objective Exam General Appearance: no apparent distress, alert Neurologic Exam: alert, oriented x 3, cooperative, normal mood/affect, nml cerebellar function, sensation nml, No motor deficits Skin Exam: normal color, warm, dry Eye Exam: PERRL, EOMI, eyes nml inspection Ears, Nose, Throat Exam: normal ENT inspection, pharynx normal, moist mucous membranes Neck Exam: normal inspection, non-tender, supple, full range of motion Respiratory Exam: normal breath sounds, lungs clear, No respiratory distress Cardiovascular Exam: regular rate/rhythm, normal heart sounds Gastrointestinal/Abdomen Exam: soft, No tenderness, No mass Extremity Exam: normal inspection, normal range of motion Back Exam: normal inspection, normal range of motion, No CVA tenderness, No vertebral tenderness Male Genitalia Exam: deferred Rectal Exam: deferred OBJECTIVE DATA Vital Signs: Vital Signs - 24 hr Temp Pulse Resp BP Pulse Ox 03/10/19 11:58 99.0 F 64 18 127/61 94 L 03/10/19 07:20 98.0 F 67 18 147/65 84 L 03/10/19 04:00 98.8 F 66 20 145/65 96 03/10/19 00:15 99.8 F 66 20 132/63 95 03/09/19 20:00 98.6 F 69 18 137/63 94 L 03/09/19 16:00 98.3 F 64 18 131/61 94 L Pain Assessment - Last Documented Pain Intensity 0 Pain Scale Used 0-10 Pain Scale Intake and Output: Intake & Output 03/08/19 03/09/19 03/10/19 03/11/19 11:59 11:59 11:59 11:59 Intake Total 2709 6831 240 Output Total 8472 9720 400 Balance 1153 -1829 -160 Weight 91.9 kg Radiology Exams: Radiology Procedures Category Date Time Status VENOUS UNILAT/LIMITED EXTREMIT [US] Stat Exams 03/08/19 22:18 Completed Assessment/Plan (1) Ulcer of right leg Current Visit: No Status: Acute Qualifiers: Non-pressure ulcer stage: unspecified non-pressure ulcer stage Qualified Code(s): L97.919 - Non-pressure chronic ulcer of unspecified part of right lower leg with unspecified severity Assessment & Plan: Last Vital Signs Temp 99.0 F 03/10/19 11:58 Pulse 64 03/10/19 11:58 Resp 18 03/10/19 11:58 BP 127/61 03/10/19 11:58 Pulse Ox 94 L 03/10/19 11:58 Allergies No Known Drug Allergies Allergy (Verified 03/08/19 18:45) Active Medications Acetaminophen (Tylenol 325 Mg) 650 mg PO Q4H PRN PRN PRN Reason: PAIN AND/OR FEVER Stop: 04/08/19 02:04 Hydrocodone Bitart/Acetaminophen ([place] 5/325 Mg) 1 tab PO QID PRN PRN PRN Reason: PAIN Stop: 03/14/19 02:07 Last Admin: 03/09/19 19:54 Dose: 1 tab Enoxaparin Sodium (Enoxaparin Sodium) 40 mg SQ DAILY RODRIGUEZ Stop: 04/08/19 09:59 Last Admin: 03/10/19 10:06 Dose: 40 mg Furosemide (Lasix 40 Mg) 40 mg PO DAILY RODRIGUEZ Stop: 04/08/19 09:59 Last Admin: 03/10/19 10:07 Dose: 40 mg Gabapentin (Neurontin 300 Mg) 600 mg PO TID RODRIGUEZ Stop: 04/08/19 09:59 Last Admin: 03/10/19 10:07 Dose: 600 mg Sodium Chloride (Sodium Chloride 0.9% 1000 Ml) 1,000 mls @ 30 mls/hr IV .Q24H RODRIGUEZ Stop: 04/08/19 02:29 Last Admin: 03/09/19 14:22 Dose: 100 mls/hr Vancomycin HCl 1.25 gm/ Sodium (Chloride) 250 mls @ 167 mls/hr IV Q12HT RODRIGUEZ Stop: 04/08/19 09:59 Last Admin: 03/10/19 10:07 Dose: 167 mls/hr Morphine Sulfate (Morphine Sulfate 2 Mg Inj) 2 mg IV Q4H PRN PRN PRN Reason: PAIN Stop: 03/14/19 02:07 Intake & Output 03/10/19 03/11/19 11:59 11:59 Intake Total 3221 240 Output Total 5050 400 Balance -1829 -160 Microbiology 03/08/19 19:00 Leg - Right Lower Wound Culture - Preliminary GRAM NEGATIVE ID AND SENSITIVITY PENDING 03/08/19 20:10 Blood Blood Culture - Preliminary NO GROWTH TO DATE 03/08/19 19:55 Blood Blood Culture - Preliminary NO GROWTH TO DATE Code(s): L97.919 - NON-PRS CHRONIC ULC UNSP PRT OF R LOW LEG W UNSP SEVERITY
[2019-03-10] MEDS ORDERED: ROCEPHIN 1 Gm-D5w 50 ml Bag** 1 G/50 ML IVPB IV SCH (18:00)
[2019-03-10] MEDS: NORCO 5/325 MG PO PRN (19:51)
[2019-03-11] MEDS: NORCO 5/325 MG PO PRN ×3 (02:05→14:35)
[2019-03-11] MEDS: Sodium Chloride 0.9% 1000 ML 1,000 ML IV SCH (05:44)
[2019-03-11] MEDS: NEURONTIN 300 MG PO SCH ×2 (09:39→14:27)
[2019-03-11] MEDS: ENOXAPARIN SODIUM SQ SCH (09:40)
[2019-03-11] MEDS: Lasix 40 MG PO SCH (09:40)
[2019-03-11] MEDS ORDERED: Zofran 4 MG/2 ML VIAL IV PRN (11:03)
--- NOTE | 2019-03-11 12:07 | PCM.DS ---
Discharge Summary Date of Admission: 03/08/19 23:16 Admitting Physician: ZEUS NEIL Primary Care Provider: ZEUS NEIL Allergies Allergies No Known Drug Allergies Allergy (Verified 03/08/19 18:45) Hospital Summary - Hospital Course Hospital Course: Chief Complaint Diagnosis swelling on legs Allergies Allergy/AdvReac Type Severity Reaction Status Date / Time No Known Drug Allergies Allergy Verified 03/08/19 18:45 Vital Signs (Last 24 hours) Temp Pulse Resp BP Pulse Ox 03/11/19 08:00 98 F 64 18 160/67 94 L 03/11/19 04:00 98.4 F 60 18 126/60 94 L 03/11/19 00:03 98.7 F 69 18 131/63 97 03/10/19 20:00 98.2 F 65 20 152/67 96 03/10/19 16:41 98.2 F 74 20 140/78 96 Home Medications Medication Instructions Recorded Confirmed Last Taken Type ALPRAZolam [Alprazolam] 2 mg PO TID 03/08/19 03/09/19 03/08/19 History Furosemide 40 mg PO DAILY 03/08/19 03/09/19 03/08/19 History Current Medications Generic Name Dose Route Start Last Admin Trade Name Freq PRN Reason Stop Dose Admin Acetaminophen 650 mg 03/09/19 02:05 Tylenol 325 Mg PO 04/08/19 02:04 Q4H PRN PRN PAIN AND/OR FEVER Hydrocodone Bitart/Acetaminophen 1 tab 03/09/19 02:08 03/11/19 09:59 [place] 5/325 Mg PO 03/14/19 02:07 1 tab QID PRN PRN Administration PAIN Enoxaparin Sodium 40 mg 03/09/19 10:00 03/11/19 09:40 Enoxaparin Sodium SQ 04/08/19 09:59 40 mg DAILY RODRIGUEZ Administration Furosemide 40 mg 03/09/19 10:00 03/11/19 09:40 Lasix 40 Mg PO 04/08/19 09:59 40 mg DAILY RODRIGUEZ Administration Gabapentin 600 mg 03/09/19 10:00 03/11/19 09:39 Neurontin 300 Mg PO 04/08/19 09:59 600 mg TID RODRIGUEZ Administration Sodium Chloride 1,000 mls @ 30 mls/hr 03/09/19 02:30 03/11/19 05:44 Sodium Chloride 0.9% 1000 Ml IV 04/08/19 02:29 100 mls/hr .Q24H RODRIGUEZ Administration Ceftriaxone Sodium/Dextrose 1 g in 50 mls @ 100 mls/hr 03/10/19 18:00 17:14 Rocephin 1 Gm-D5w 50 Ml Bag IV 04/09/19 17:59 100 mls/hr Q24H RODRIGUEZ Administration Morphine Sulfate 2 mg 03/09/19 02:08 Morphine Sulfate 2 Mg Inj IV 03/14/19 02:07 Q4H PRN PRN PAIN Ondansetron HCl 4 mg 03/11/19 11:03 03/11/19 11:28 Zofran 4 Mg/2 Ml Vial IV 04/10/19 11:02 4 mg Q6H PRN PRN Administration NAUSEA/VOMITING Discontinued Medications Generic Name Dose Route Start Last Admin Trade Name Freq PRN Reason Stop Dose Admin Acetaminophen 650 mg 03/08/19 22:10 Tylenol 325 Mg PO 04/07/19 22:09 Q4H PRN PRN PAIN AND/OR FEVER Hydrocodone Bitart/Acetaminophen 1 tab 03/08/19 22:16 [place] 5/325 Mg PO 03/13/19 22:15 QID PRN PRN PAIN Alprazolam 2 mg 03/09/19 02:00 03/09/19 01:24 Xanax 1 Mg PO 03/09/19 02:01 2 mg NOW ONE Administration Enoxaparin Sodium 40 mg 03/09/19 10:00 Enoxaparin Sodium SQ 04/08/19 09:59 DAILY RODRIGUEZ Furosemide 40 mg 03/09/19 10:00 Lasix 40 Mg PO 04/08/19 09:59 DAILY RODRIGUEZ Gabapentin 600 mg 03/09/19 10:00 Neurontin 300 Mg PO 04/08/19 09:59 TID RODRIGUEZ Gabapentin 1,200 mg 03/09/19 02:00 03/09/19 01:24 Neurontin 400 Mg PO 03/09/19 02:01 1,200 mg ONCE ONE Administration Gabapentin Confirm 03/09/19 01:16 Neurontin 300 Mg Administered 03/09/19 01:17 Dose 1,200 mg .ROUTE .STK-MED ONE Sodium Chloride 1,000 mls @ 250 mls/hr 03/08/19 19:45 03/09/19 00:17 Sodium Chloride 0.9% 1000 Ml IV 04/07/19 19:44 Infused .Q4H RODRIGUEZ Infusion Vancomycin HCl 1 gm in 250 mls @ 167 mls/hr 03/08/19 19:43 03/08/19 20:09 Vancomycin 1gm/ Ns 250ml IV 03/08/19 21:12 167 mls/hr STAT ONE Administration Vancomycin HCl Confirm 03/08/19 20:01 Vancomycin 1gm/ Ns 250ml Administered 03/08/19 20:02 Dose 250 mls @ ud IV .STK-MED ONE Piperacillin Sod/Tazobactam Sod 3.375 gm in 100 mls @ 200 mls/hr 03/08/19 21: 58 03/08/19 22:47 Zosyn 3.375gm/100 Ml D5w IV 03/08/19 22:27 200 ml/hr STAT STA 200 mls/hr Administration Piperacillin Sod/Tazobactam Sod 3.375 gm in 100 mls @ 200 mls/hr 03/09/19 00: 00 Zosyn 3.375gm/100 Ml D5w IV 04/08/19 00:00 Q6HT RODRIGUEZ Sodium Chloride 1,000 mls @ 100 mls/hr 03/08/19 22:15 03/09/19 07:17 Sodium Chloride 0.9% 1000 Ml IV 04/07/19 22:14 Not Given .Q10H RODRIGUEZ Vancomycin HCl 1 gm/ Sodium 250 mls @ 167 mls/hr 03/08/19 22:30 03/09/19 07: 16 Chloride IV 04/07/19 22:29 Not Given Q24H RODRIGUEZ Piperacillin Sod/Tazobactam Sod Confirm 03/08/19 22:42 Zosyn 3.375gm/100 Ml D5w Administered 03/08/19 22:43 Dose 3.375 gm in 100 mls @ ud IV .STK-MED ONE Sodium Chloride Confirm 03/08/19 20:01 Sodium Chloride 0.9% 1000 Ml Administered 03/08/19 20:02 Dose 1,000 mls @ ud .ROUTE .STK-MED ONE Sodium Chloride Confirm 03/09/19 00:36 Sodium Chloride 0.9% 1000 Ml Administered 03/09/19 00:37 Dose 1,000 mls @ ud .ROUTE .STK-MED ONE Piperacillin Sod/Tazobactam Sod 3.375 gm in 100 mls @ 200 mls/hr 03/09/19 06: 00 03/10/19 12:46 Zosyn 3.375gm/100 Ml D5w IV 04/08/19 05:59 200 mls/hr Q6HT RODRIGUEZ Administration Vancomycin HCl 1 gm in 250 mls @ 167 mls/hr 03/09/19 20:00 Vancomycin 1gm/ Ns 250ml IV 04/08/19 19:59 Q24H RODRIGUEZ Vancomycin HCl 1.25 gm/ Sodium 250 mls @ 167 mls/hr 03/09/19 10:00 03/10/19 10:07 Chloride IV 04/08/19 09:59 167 mls/hr Q12HT RODRIGUEZ Administration Morphine Sulfate 4 mg 03/08/19 21:59 03/08/19 22:46 Morphine Sulfate 4 Mg Inj IV 03/08/19 22:00 4 mg STAT ONE Administration Morphine Sulfate 2 mg 03/08/19 22:10 Morphine Sulfate 2 Mg Inj IV 03/13/19 22:09 Q4H PRN PRN PAIN Morphine Sulfate Confirm 03/08/19 22:42 Morphine Sulfate 4 Mg Inj Administered 03/08/19 22:43 Dose 4 mg .ROUTE .STK-MED ONE Ondansetron HCl 4 mg 03/08/19 21:59 03/08/19 22:47 Zofran 4 Mg/2 Ml Vial IV 03/08/19 22:00 4 mg STAT ONE Administration Ondansetron HCl Confirm 03/08/19 22:42 Zofran 4 Mg/2 Ml Vial Administered 03/08/19 22:43 Dose 4 mg .ROUTE .STK-MED ONE Tamsulosin HCl 0.4 mg 03/09/19 02:00 03/09/19 01:23 Flomax 0.4 Mg PO 03/09/19 02:01 0.4 mg ONCE ONE Administration Intake & Output (Last 24 hours) 03/09/19 03/10/19 03/11/19 03/12/19 11:59 11:59 11:59 11:59 Intake Total 2628 3221 1934 Output Total 1479 9121 1445 Balance 0174 -5390 -5448 Weight 91.9 kg Microbiology Results (Last 24 hours) 03/08/19 19:00 Leg - Right Lower Wound Culture - Preliminary Proteus Mirabilis Orders (Last 24 hours) Category Date Time Status Ceftriaxone 1 GM/50 ML PREMIX* [ROCEPHIN 1 Gm-D5w 50 ml Med 03/10/19 18:00 Active Bag] 1 g in 50 ml IV Q24H Ondansetron HCl 4 mg/2 ml [Zofran 4 MG/2 ML VIAL] Med 03/11/19 11:03 Active 4 mg IV Q6H PRN PRN Patient Care Notes (Last 24 hours) 03/10/19 16:04 Physical Therapy Note by Karlie Juarez LIGHT COMPRESSION WITH TUBIGRIP SLEEVE TOLERATED TODAY OVER ALGINATE PRIMARY DRESSING WITH 4X4 GAUZE COVER AND GAUZE FLUFF ANCHOR. RIGHT LOWER LEG WOUND STILL RAW, SEEPING, WITH DUSKY PERIWOUND. WILL RE-ASSESS WOUND IN THE A.M. Initialized on 03/10/19 16:04 - END OF NOTE - Vitals & Intake/Output Vital Signs: Vital Signs Temperature 98 F 03/11/19 08:00 Pulse Rate 64 03/11/19 08:00 Respiratory Rate 18 03/11/19 08:00 Blood Pressure 160/67 03/11/19 08:00 O2 Sat by Pulse Oximetry 94 L 03/11/19 08:00 Intake & Output: Intake & Output 03/09/19 03/10/19 03/11/19 03/12/19 11:59 11:59 11:59 11:59 Intake Total 2628 3221 1934 Output Total 2163 8211 4084 Balance 0549 -2146 -7873 Weight 91.9 kg - Lab Result Diagrams: 03/08/19 19:55 03/08/19 19:55 Micro Results-Entire Visit: Microbiology 03/08/19 19:00 Wound Culture - Preliminary Leg - Right Lower Proteus Mirabilis 03/08/19 20:10 Blood Culture - Preliminary Blood NO GROWTH TO DATE 03/08/19 19:55 Blood Culture - Preliminary Blood NO GROWTH TO DATE - Procedures and Test Procedures and Tests throughout Hospitalization: Therapy Orders & Screens 03/09/19 10:34 PT Eval & Treat ( Order) ROUTINE Reason for Eval:: WOUND CARE Diagnosis: swelling on legs Discharge Exam General Appearance: no apparent distress, alert Neurologic Exam: alert, oriented x 3, cooperative, normal mood/affect, nml cerebellar function, sensation nml, No motor deficits Eye Exam: PERRL, EOMI, eyes nml inspection Ears, Nose, Throat Exam: normal ENT inspection, pharynx normal, moist mucous membranes Neck Exam: normal inspection, non-tender, supple, full range of motion Respiratory Exam: normal breath sounds, lungs clear, No respiratory distress Cardiovascular Exam: regular rate/rhythm, normal heart sounds Gastrointestinal/Abdomen Exam: soft, No tenderness, No mass Male Genitalia Exam: deferred Rectal Exam: deferred Back Exam: normal inspection, normal range of motion, No CVA tenderness, No vertebral tenderness Extremity Exam: normal inspection, normal range of motion Skin Exam: normal color, warm, dry Final Diagnosis/Problem List - Final Discharge Diagnosis/Problem (1) Ulcer of right leg Current Visit: Yes Status: Acute Priority: Medium Assessment & Plan: Patient will require ceftriaxone 1 gm IM daily for 10 days. home health to follow Code(s): L97.919 - NON-PRS CHRONIC ULC UNSP PRT OF R LOW LEG W UNSP SEVERITY - Discharge Discharge Date: 03/11/19 Disposition: HOME HEALTH SERVICE Condition: Stable Prescriptions: New Ceftriaxone 1 GM/50 ML PREMIX* [ROCEPHIN 1 Gm-D5w 50 ml Bag] 1 g IM Q24H 10 Days #10 Continue Tamsulosin HCl 0.4 mg [Flomax 0.4 MG] 0.4 mg PO HS Prednisone 5 mg [Deltasone 5 mg] 5 mg PO DAILY Pravastatin Sodium 20 mg PO DAILY Gabapentin [Neurontin] 1,200 mg PO TID Furosemide 40 mg PO DAILY ALPRAZolam [Alprazolam] 2 mg PO TID #45 tablet Instructions: Cellulitis (Skin Infection), Child (DC) Follow up with: ZEUS NEIL MD [Primary Care Provider] - 1 Week
[2019-03-11 15:42] VITALS: BP 148/65; PULSE 56; O2SAT 93
== END 2019-03-11 15:55 | disposition home health service (06) ==
LOC: ED 18:11 → MED SURG 23:16
PROVIDERS: ADMIT General Practice; ATTEND General Practice
DX: L97.919 Non-pressure chronic ulcer of unspecified part of right lower leg with unspecified severity (principal); L03.90 Cellulitis, unspecified; G83.9 Paralytic syndrome, unspecified; Z79.899 Other long term (current) drug therapy
CPT/HCPCS: 36000; 36415; 80053; 85025; 85379; 85610; 87040; 87070; 87077; 87186; 93971; 96360; 96361; 96365; 96374; 96375; 97161; 97530; 99285; G0378; A6457; J0696; J1650; J2270; J2405; J2543; J3370; A9270-GY

== ENCOUNTER 2019-05-03 18:34 | Observation (INO) | payer MEDICARE ==
[2019-05-03] MEDS ORDERED: ZOFRAN ODT 4 MG PO ONE (19:07)
--- NOTE | 2019-05-03 19:07 | ERPHSYRPT ---
- History of Present Illness Time Seen by Provider: 05/03/19 18:55 Source: patient, family Exam Limitations: no limitations Patient Subjective Stated Complaint: Patient has cellulitis to his right lower extremety and his right foot was normal this morning but is swollen now, this happens off and on but his daughter told him to come in today Triage Nursing Assessment: Pt brought in the ER via a wheelchair, vitals wnl, rates pain 3/10, pulses normal, has this problem everyday for 3-4 months Physician History: 68 y/o white male presents with nonhealing right lower leg ulcer, that is worsening, over a 4 month period of time. pt states redness and swelling worse this am. he has associated right lower leg pain. pt is not diabetic. pt states he has had infected metal in the area in past after placed for orthopedic repair. pt has an appt with wound care center on 05/06/19. denies fever Method of Injury: other (no new injury) Occurred: other (worsening over 4 months) Severity of Pain-Max: mild Severity of Pain-Current: mild Lower Extremities Pain: leg: right (medial aspect of lower 1/3 tibia) Modifying Factors: Improves With: nothing Associated Symptoms: none Allergies/Adverse Reactions: No Known Drug Allergies Allergy (Verified 05/03/19 18:51) Home Medications: Pravastatin Sodium 20 mg PO DAILY 09/14/15 [History] Prednisone 5 mg [Deltasone 5 mg] 5 mg PO DAILY 09/14/15 [History] Tamsulosin HCl 0.4 mg [Flomax 0.4 MG] 0.4 mg PO HS 09/14/15 [History] Gabapentin [Neurontin] 1,200 mg PO TID 12/31/16 [History] Hx Tetanus, Diphtheria Vaccination/Date Given: Yes Hx Influenza Vaccination/Date Given: Yes Hx Pneumococcal Vaccination/Date Given: No - Review of Systems Constitutional: No Symptoms, No Fever Eyes: No Symptoms Ears, Nose, & Throat: No Symptoms Respiratory: No Symptoms Cardiac: No Symptoms Abdominal/Gastrointestinal: No Symptoms Genitourinary Symptoms: No Symptoms Musculoskeletal: Other (redness and swelling along old incision line) Skin: Cellulitis Neurological: No Symptoms Psychological: No Symptoms Endocrine: No Symptoms Hematologic/Lymphatic: No Symptoms Immunological/Allergic: No Symptoms All Other Systems: Reviewed and Negative - Past Medical History Pertinent Past Medical History: Yes Neurological History: Paralysis ENT History: No Pertinent History Cardiac History: No Pertinent History Respiratory History: Bronchitis Endocrine Medical History: No Pertinent History Musculoskeletal History: Other GI Medical History: No Pertinent History History: No Pertinent History Psycho-Social History: No Pertinent History Male Reproductive Disorders: No Pertinent History Other Medical History: 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 struck head on sink causing cervial fracture, 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 - Past Surgical History Past Surgical History: Yes Neuro Surgical History: No Pertinent History Cardiac: No Pertinent History Respiratory: No Pertinent History Gastrointestinal: No Pertinent History Genitourinary: No Pertinent History Musculoskeletal: Other Male Surgical History: No Pertinent History Other Surgical History: spinal surgery, plate and screws right lower leg, ruptured disk surgery through neck - Social History Smoking Status: Former smoker Exposure to second hand smoke: Yes Alcohol Use: None Drug Use: none Patient Lives Alone: No Significant Family History: no pertinent family hx - Nursing Vital Signs Nursing Vital Signs: Initial Vital Signs Pulse Rate 67 05/03/19 18:43 Blood Pressure 129/60 05/03/19 18:43 O2 Sat by Pulse Oximetry 96 05/03/19 18:43 Pain Scale Pain Intensity 3 - Physical Exam General Appearance: no apparent distress, alert, anxiety Eyes, Ears, Nose, Throat Exam: normal ENT inspection, moist mucous membranes Neck Exam: normal inspection, non-tender, supple, full range of motion Cardiovascular/Respiratory Exam: chest non-tender, no respiratory distress Gastrointestinal/Abdominal Exam: non-tender Back Exam: normal inspection, normal range of motion, No CVA tenderness, No vertebral tenderness Hips Exam: bilateral: non-tender, normal inspection, normal range of motion, no evidence of injury Knees Exam: bilateral knee: non-tender, normal inspection, normal range of motion, no evidence of injury Ankle Exam: right ankle: soft tissue tenderness, swelling Foot Exam: right foot: normal range of motion, no evidence of injury, soft tissue tenderness, swelling Neuro/Tendon Exam: normal sensation, normal motor functions, normal tendon functions, responds to pain Mental Status Exam: alert, oriented x 3, cooperative Skin Exam: other (cellulitis in area of right lower leg ulceration ) SpO2 Interpretation: normal SpO2: 96 O2 Delivery: Room Air Ordered Tests: Active Orders 24 hr Category Date Time Status IV Insertion STAT Care 05/03/19 19:07 Active BLOOD CULTURE Stat Lab 05/03/19 19:50 Received CBC W DIFF Stat Lab 05/03/19 19:30 Completed CMP Stat Lab 05/03/19 19:30 Completed CULTURE,WOUND Stat Lab 05/03/19 21:30 Received D-DIMER QUANTITATION Stat Lab 05/03/19 19:30 Completed Lactic Acid Stat Lab 05/03/19 19:38 Completed Transfer Order Routine Transfer 05/03/19 Ordered Medication Summary Generic Name Dose Route Start Last Admin Trade Name Freq PRN Reason Stop Dose Admin Sodium Chloride 1,000 mls @ 50 mls/hr 05/03/19 19:15 05/03/19 19:38 Sodium Chloride 0.9% 1000 Ml IV 06/02/19 19:14 50 mls/hr .Q20H RODRIGUEZ Administration Discontinued Medications Generic Name Dose Route Start Last Admin Trade Name Freq PRN Reason Stop Dose Admin Enoxaparin Sodium 90 mg 05/03/19 23:04 05/03/19 23:06 Enoxaparin Sodium 1 mg/kg (90 mg) 05/03/19 23:05 90 mg SQ Administration STAT ONE Enoxaparin Sodium Confirm 05/03/19 23:06 Enoxaparin Sodium Administered 05/03/19 23:07 Dose 120 mg SQ .STK-MED ONE Hydromorphone HCl 0.5 mg 05/03/19 19:08 05/03/19 19:37 Hydromorphone 1 Mg/Ml Ampule IV 05/03/19 19:09 0.5 mg STAT ONE Administration Hydromorphone HCl Confirm 05/03/19 19:14 Hydromorphone 1 Mg/Ml Ampule Administered 05/03/19 19:15 Dose 1 mg .ROUTE .STK-MED ONE Ceftriaxone Sodium/Dextrose 1 g in 50 mls @ 100 mls/hr 05/03/19 19:24 20:47 Rocephin 1 Gm-D5w 50 Ml Bag IV 05/03/19 19:53 Infused STAT STA Infusion Ceftriaxone Sodium/Dextrose Confirm 05/03/19 20:16 Rocephin 1 Gm-D5w 50 Ml Bag Administered 05/03/19 20:17 Dose 1 g in 50 mls @ ud IV .STK-MED ONE Ondansetron HCl 4 mg 05/03/19 19:07 05/03/19 19:38 Zofran Odt 4 Mg PO 05/03/19 19:08 4 mg STAT ONE Administration Ondansetron HCl Confirm 05/03/19 19:14 Zofran 4 Mg/2 Ml Vial Administered 05/03/19 19:15 Dose 4 mg .ROUTE .STK-MED ONE Lab/Rad Data: Laboratory Result Diagrams 05/03/19 19:30 05/03/19 19:30 Laboratory Results 05/03/19 05/03/19 05/03/19 Range/Units 19:38 19:30 19:30 WBC (4.0-10.5) K/mm3 RBC (4.1-5.6) M/mm3 Hgb (12.5-18.0) gm/dl Hct (42-50) % MCV (78-100) fl MCH (26-32) pg MCHC (32-36) g/dl RDW (11.5-14.0) % Plt Count (150-450) K/mm3 MPV (6-9.5) fl Gran % (36.0-66.0) % Eos # (Auto) (0-0.5) Absolute Lymphs (auto) (1.0-4.6) Absolute Monos (auto) (0.0-1.3) Lymphocytes % (24.0-44.0) % Monocytes % (0.0-12.0) % Eosinophils % (0.00-5.0) % Basophils % (0.0-0.4) % Absolute Granulocytes (1.4-6.9) Basophils # (0-0.4) D-Dimer 750 H* (215-500) ng/mL Sodium 138 (137-145) mmol/L Potassium 4.1 (3.5-5.1) mmol/L Chloride 101 (98-107) mmol/L Carbon Dioxide 28 (22-30) mmol/L Anion Gap 12.4 (5-15) MEQ/L BUN 10 (9-20) mg/dL Creatinine 0.83 (0.66-1.25) mg/dL Estimated GFR > 60.0 ML/MIN Glucose 168 H (74-106) mg/dL Lactic Acid 2.0 (0.4-2.0) Calcium 9.3 (8.4-10.2) mg/dL Total Bilirubin 0.50 (0.2-1.3) mg/dL AST 32 (17-59) U/L ALT 22 (0-50) U/L Alkaline Phosphatase 50 (38-126) U/L Serum Total Protein 7.2 (6.3-8.2) g/dL Albumin 3.8 (3.5-5.0) g/dL 05/03/19 Range/Units 19:30 WBC 8.1 (4.0-10.5) K/mm3 RBC 3.96 L (4.1-5.6) M/mm3 Hgb 13.0 (12.5-18.0) gm/dl Hct 38.6 L (42-50) % MCV 97.5 (78-100) fl MCH 32.8 H (26-32) pg MCHC 33.7 (32-36) g/dl RDW 12.9 (11.5-14.0) % Plt Count 210 (150-450) K/mm3 MPV 9.8 H (6-9.5) fl Gran % 65.5 (36.0-66.0) % Eos # (Auto) 0.32 (0-0.5) Absolute Lymphs (auto) 1.85 (1.0-4.6) Absolute Monos (auto) 0.57 (0.0-1.3) Lymphocytes % 23.0 L (24.0-44.0) % Monocytes % 7.1 (0.0-12.0) % Eosinophils % 4.0 (0.00-5.0) % Basophils % 0.4 (0.0-0.4) % Absolute Granulocytes 5.29 (1.4-6.9) Basophils # 0.03 (0-0.4) D-Dimer (215-500) ng/mL Sodium (137-145) mmol/L Potassium (3.5-5.1) mmol/L Chloride (98-107) mmol/L Carbon Dioxide (22-30) mmol/L Anion Gap (5-15) MEQ/L BUN (9-20) mg/dL Creatinine (0.66-1.25) mg/dL Estimated GFR ML/MIN Glucose (74-106) mg/dL Lactic Acid (0.4-2.0) Calcium (8.4-10.2) mg/dL Total Bilirubin (0.2-1.3) mg/dL AST (17-59) U/L ALT (0-50) U/L Alkaline Phosphatase (38-126) U/L Serum Total Protein (6.3-8.2) g/dL Albumin (3.5-5.0) g/dL - Progress Progress: improved, pain not gone completely, re-examined Progress Note: 05/03/19 23:[address] neil. with place pt in observation, iv antibiotics, lovenox venous doppler right leg. Counseled pt/family regarding: lab results, diagnosis, need for follow-up - Departure Departure Disposition: Home Clinical Impression: Cellulitis, Elevated d-dimer Condition: Stable Critical Care Time: Yes Critical Care Time(excluding separately billable procedures): 30-74 minutes Referrals: ZEUS NEIL MD [Primary Care Provider] -
[2019-05-03] MEDS ORDERED: Hydromorphone 1 mg/ml Ampule IV ONE (19:08)
[2019-05-03] MEDS ORDERED: Hydromorphone 1 mg/ml Ampule ONE (19:14)
[2019-05-03] MEDS ORDERED: Zofran 4 MG/2 ML VIAL ONE (19:14)
[2019-05-03] MEDS ORDERED: Sodium Chloride 0.9% 1000 ML 1,000 ML ONE (19:14)
[2019-05-03] MEDS ORDERED: Sodium Chloride 0.9% 1000 ML 1,000 ML IV SCH ×2 (19:15→23:22)
[2019-05-03] MEDS ORDERED: ROCEPHIN 1 Gm-D5w 50 ml Bag** 1 G/50 ML IVPB IV STA (19:24)
[2019-05-03 20:01] LABS: BASOPHIL % 0.4 % (0.0-0.4); Basophil (Absolute #) 0.03 (0-0.4); Eosinophil (Absolute #) 0.32 (0-0.5); Granulocyte Absolute (ANC) 5.29 (1.4-6.9); Granulocytes % 65.5 % (36.0-66.0); Hematocrit 38.6 % (42-50); Lymphocyte (Absolute #) 1.85 (1.0-4.6); Mean Cell Volume 97.5 fl (78-100); Mean Corpuscular Hemoglobin 32.8 pg (26-32); Mean Corpuscular Hgb Concent. 33.7 g/dl (32-36); Mean Platelet Volume 9.8 fl (6-9.5); Monocyte (Absolute #) 0.57 (0.0-1.3); Monocytes % 7.1 % (0.0-12.0); Platelet Count 210 K/mm3 (150-450); Red Blood Count 3.96 M/mm3 (4.1-5.6); Red Cell Distribution Width 12.9 % (11.5-14.0); White Blood Count 8.1 K/mm3 (4.0-10.5)
[2019-05-03 20:15] LABS: ALBUMIN 3.8 g/dL (3.5-5.0); ALKALINE PHOSPHATASE 50 U/L (38-126); ANION GAP 12.4 MEQ/L (5-15); BLOOD UREA NITROGEN 10 mg/dL (9-20); CHLORIDE 101 mmol/L (98-107); Calcium 9.3 mg/dL (8.4-10.2); Carbon Dioxide 28 mmol/L (22-30); Creatinine 1 0.83 mg/dL (0.66-1.25); Glucose 168 mg/dL (74-106); Potassium 4.1 mmol/L (3.5-5.1); SGOT/AST 32 U/L (17-59); SGPT/ALT 22 U/L (0-50); SODIUM 138 mmol/L (137-145); Total Protein 7.2 g/dL (6.3-8.2)
[2019-05-03] MEDS ORDERED: ROCEPHIN 1 Gm-D5w 50 ml Bag** 1 G/50 ML IVPB IV ONE (20:16)
[2019-05-03] MEDS ORDERED: ENOXAPARIN SODIUM SQ ONE ×2 (23:04→23:06)
[2019-05-03] MEDS ORDERED: Zofran 4 MG/2 ML VIAL IV PRN (23:22)
[2019-05-03] MEDS ORDERED: ENOXAPARIN SODIUM SQ SCH (23:22)
[2019-05-03] MEDS ORDERED: TYLENOL 325 MG PO PRN (23:22)
[2019-05-04] MEDS: DILAUDID 2 MG INJECTION IV PRN ×2 (00:35→07:37)
[2019-05-04] MEDS ORDERED: Flomax 0.4 MG ONE (00:56)
[2019-05-04] MEDS: Neurontin 400 MG PO SCH ×2 (00:58→09:47)
[2019-05-04 05:41] LABS: BASOPHIL % 0.4 % (0.0-0.4); Basophil (Absolute #) 0.04 (0-0.4); Eosinophil % 4.7 % (0.00-5.0); Eosinophil (Absolute #) 0.47 (0-0.5); Granulocyte Absolute (ANC) 5.06 (1.4-6.9); Granulocytes % 50.2 % (36.0-66.0); Hematocrit 36.4 % (42-50); Hemoglobin 12.2 gm/dl (12.5-18.0); Lymphocytes % 33.7 % (24.0-44.0); Mean Cell Volume 98.4 fl (78-100); Mean Corpuscular Hgb Concent. 33.5 g/dl (32-36); Mean Platelet Volume 9.2 fl (6-9.5); Monocyte (Absolute #) 1.11 (0.0-1.3); Platelet Count 189 K/mm3 (150-450); Red Cell Distribution Width 12.9 % (11.5-14.0); White Blood Count 10.1 K/mm3 (4.0-10.5)
[2019-05-04 05:59] LABS: Mean Corpuscular Hemoglobin 32.9 pg (26-32)
[2019-05-04 06:07] LABS: ANION GAP 9.5 MEQ/L (5-15); BLOOD UREA NITROGEN 9 mg/dL (9-20); CHLORIDE 103 mmol/L (98-107); Calcium 9.3 mg/dL (8.4-10.2); Carbon Dioxide 31 mmol/L (22-30); Creatinine 1 0.84 mg/dL (0.66-1.25); Glucose 90 mg/dL (74-106); Potassium 4.3 mmol/L (3.5-5.1); SODIUM 140 mmol/L (137-145)
[2019-05-04] MEDS ORDERED: ALPRAZOLAM 2 MG PO PRN (07:03)
[2019-05-04] MEDS ORDERED: XANAX 1 MG PO PRN (07:05)
[2019-05-04] MEDS ORDERED: MOTRIN 400 MG PO PRN (07:05)
[2019-05-04] MEDS ORDERED: ENOXAPARIN SODIUM SQ SCH (10:00)
[2019-05-04] MEDS ORDERED: ZOCOR 20MG PO SCH (10:00)
[2019-05-04] MEDS ORDERED: DELTASONE 5 MG PO SCH (10:00)
[2019-05-04] MEDS ORDERED: Lasix 40 MG PO SCH (10:00)
--- NOTE | 2019-05-04 10:14 | XRAY ---
Exam: Right lower extremity duplex Doppler venous ultrasound examination from 05/04/2019. Comparison: Right lower extremity duplex Doppler venous ultrasound examination from 03/08/2019. Indication: 68-year-old male with swollen right leg, open wound, cellulitis. Technique: Examination of the right lower leg was performed in the usual manner with grayscale images, color flow images, and Doppler tracings. Findings: Normal transducer compression, color flow imaging, and Doppler signal augmentation is seen within billing customer service representative sections of the right common femoral vein, proximal, mid, and distal superficial femoral vein, popliteal vein, tibial/peroneal trunk, and distal posterior tibial veins. I also see normal color flow imaging and Doppler signal augmentation within the profunda femoral vein. Normal transducer compression is seen within the greater saphenous vein. I again see superficial subcutaneous edema along the course of the right calf. This is unchanged from 03/08/2019. There is no abnormal fluid collection seen. Impression: 1. No sonographic or Doppler evidence of deep venous thrombosis is seen within the right lower extremity. 2. Superficial edema is seen along the course of the calf of the right lower leg representing no change from 03/08/2019.
--- NOTE | 2019-05-04 12:05 | PCM.SSS ---
History of Present Illness - Chief Complaint Chief Complaint: c/o swelling on right leg History of Present Illness: is a 68 year old male. presents to ER with nonhealing right lower leg ulcer, that is worsening, over a 4 month period of time. pt states redness and swelling worse this am. he has associated right lower leg pain. pt is not diabetic. pt states he has had infected metal in the area in past after placed for orthopedic repair. pt has an appt with wound care center on 05/06/19. denies fever Method of Injury: other (no new injury) Occurred: other (worsening over 4 months) Severity of Pain-Max: mild Severity of Pain-Current: mild Lower Extremities Pain: leg: right (medial aspect of lower 1/3 tibia) Modifying Factors: Improves With: nothing - Review of Systems Constitutional: No Fever, No Chills Eyes: No Symptoms Ears, Nose, & Throat: No Symptoms Respiratory: No Cough, No Short Of Breath Cardiac: No Chest Pain, No Edema, No Syncope Abdominal/Gastrointestinal: No Abdominal Pain, No Nausea, No Vomiting, No Diarrhea Genitourinary Symptoms: No Dysuria Musculoskeletal: No Back Pain, No Neck Pain Skin: No Rash Neurological: No Dizziness, No Focal Weakness, No Sensory Changes Psychological: No Symptoms Endocrine: No Symptoms Hematologic/Lymphatic: No Symptoms Immunological/Allergic: No Symptoms Medications & Allergies Home Medications: Home Medication List Pravastatin Sodium 20 mg PO DAILY 09/14/15 [History Confirmed 05/03/19] Prednisone 5 mg [Deltasone 5 mg] 5 mg PO DAILY 09/14/15 [History Confirmed 05/03/19] Tamsulosin HCl 0.4 mg [Flomax 0.4 MG] 0.4 mg PO HS 09/14/15 [History Confirmed 05/03/19] Gabapentin [Neurontin] 1,200 mg PO TID 12/31/16 [History Confirmed 05/03/19] ALPRAZolam [Alprazolam] 2 mg PO TID PRN PRN 05/04/19 [History Confirmed 05/04/19 ] Furosemide 40 mg PO DAILY 05/04/19 [History Confirmed 05/04/19] Ibuprofen 200 mg [Motrin 200 mg] 400 mg PO Q6HPRN PRN 05/04/19 [History Confirmed 05/04/19] Allergies/Adverse Reactions: Allergies Allergy/AdvReac Type Severity Reaction Status Date / Time No Known Drug Allergies Allergy Verified 05/03/19 18:51 - Past Medical History Past Medical History: Yes Neurological History: Paralysis ENT History: No Pertinent History Cardiac History: No Pertinent History Respiratory History: Bronchitis Endocrine Medical History: No Pertinent History Musculoskelatal History: Other GI Medical History: No Pertinent History History: No Pertinent History Pyscho-Social History: No Pertinent History Male Reproductive Disorders: No Pertinent History Comment: 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 struck head on sink causing cervial fracture, 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; cellulitis - Past Surgical History Past Surgical History: Yes Neuro Surgical History: No Pertinent History Cardiac History: No Pertinent History Respiratory Surgery: No Pertinent History GI Surgical History: No Pertinent History Genitourinary Surgical Hx: No Pertinent History Musculskeletal Surgical Hx: Other Male Surgical History: No Pertinent History Other Surgical History: spinal surgery, plate and screws right lower leg, ruptured disk surgery through neck - Social History Smoking Status: Former smoker Exposure to second hand smoke: Yes Alcohol: None Drug Use: none Significant Family History: no pertinent family hx - Physical Exam Vital Signs: Vital Signs - 24 hr Temp Pulse Resp BP Pulse Ox 05/04/19 11:04 98 F 64 20 148/80 96 05/04/19 07:21 97.8 F 59 L 22 156/70 96 05/04/19 04:00 98.4 F 62 18 139/63 94 L 05/04/19 01:20 98.1 F 56 L 20 158/68 96 05/03/19 23:10 55 L 16 149/68 96 05/03/19 23:09 96 05/03/19 22:25 56 L 18 135/65 97 05/03/19 21:00 60 16 133/60 97 05/03/19 18:43 67 129/60 96 General Appearance: no apparent distress, alert Neurologic Exam: alert, oriented x 3, cooperative, normal mood/affect, nml cerebellar function, nml station & gait, sensation nml, No motor deficits Eye Exam: PERRL/EOMI, eyes nml inspection Ears, Nose, Throat Exam: normal ENT inspection, TMs normal, pharynx normal, moist mucous membranes Neck Exam: normal inspection, non-tender, supple, full range of motion Respiratory Exam: normal breath sounds, lungs clear, No respiratory distress Cardiovascular Exam: regular rate/rhythm, normal heart sounds, normal peripheral pulses Gastrointestinal/Abdomen Exam: soft, normal bowel sounds, No tenderness, No mass Back Exam: normal inspection, normal range of motion, No CVA tenderness, No vertebral tenderness Extremity Exam: normal inspection, normal range of motion, pelvis stable Skin Exam: normal color, warm, dry, No rash Wound Assessment: Skin/Wound Assessment Wound/Incision Assessment Start: 05/03/19 23: 23 Text: Status: Active Freq: Q6H Protocol: Document 05/04/19 08:00 BE (Rec: 05/04/19 08:59 BE [id number]) Wound/Incision Assessment Right Calf Wound Assessment Shift Assessment Wound Stage Non Pressure Wound Dressing Status Dry & Intact Drainage Amount None Surrounding Tissue Chalfant Primary Dressing Gauze Roll/Wrap Comment clean and dry Wound Photo Photo Taken Yes Comment: in chart Lymphatic Exam: No adenopathy Results - Labs Lab/Micro Results: Lab Results-Last 24 Hours 05/03/19 05/03/19 05/03/19 Range/Units 19:30 19:30 19:30 WBC 8.1 (4.0-10.5) K/mm3 RBC 3.96 L (4.1-5.6) M/mm3 Hgb 13.0 (12.5-18.0) gm/dl Hct 38.6 L (42-50) % MCV 97.5 (78-100) fl MCH 32.8 H (26-32) pg MCHC 33.7 (32-36) g/dl RDW 12.9 (11.5-14.0) % Plt Count 210 (150-450) K/mm3 MPV 9.8 H (6-9.5) fl Gran % 65.5 (36.0-66.0) % Eos # (Auto) 0.32 (0-0.5) Absolute Lymphs (auto) 1.85 (1.0-4.6) Absolute Monos (auto) 0.57 (0.0-1.3) Lymphocytes % 23.0 L (24.0-44.0) % Monocytes % 7.1 (0.0-12.0) % Eosinophils % 4.0 (0.00-5.0) % Basophils % 0.4 (0.0-0.4) % Absolute Granulocytes 5.29 (1.4-6.9) Basophils # 0.03 (0-0.4) D-Dimer 750 H* (215-500) ng/mL Sodium 138 (137-145) mmol/L Potassium 4.1 (3.5-5.1) mmol/L Chloride 101 (98-107) mmol/L Carbon Dioxide 28 (22-30) mmol/L Anion Gap 12.4 (5-15) MEQ/L BUN 10 (9-20) mg/dL Creatinine 0.83 (0.66-1.25) mg/dL Estimated GFR > 60.0 ML/MIN Glucose 168 H (74-106) mg/dL Lactic Acid (0.4-2.0) Calcium 9.3 (8.4-10.2) mg/dL Total Bilirubin 0.50 (0.2-1.3) mg/dL AST 32 (17-59) U/L ALT 22 (0-50) U/L Alkaline Phosphatase 50 (38-126) U/L Serum Total Protein 7.2 (6.3-8.2) g/dL Albumin 3.8 (3.5-5.0) g/dL Prealbumin (17.6-36.0) mg/dL 05/03/19 05/04/19 05/04/19 Range/Units 19:38 05:00 05:30 WBC 10.1 (4.0-10.5) K/mm3 RBC 3.70 L (4.1-5.6) M/mm3 Hgb 12.2 L (12.5-18.0) gm/dl Hct 36.4 L (42-50) % MCV 98.4 (78-100) fl MCH 32.9 H (26-32) pg MCHC 33.5 (32-36) g/dl RDW 12.9 (11.5-14.0) % Plt Count 189 (150-450) K/mm3 MPV 9.2 (6-9.5) fl Gran % 50.2 (36.0-66.0) % Eos # (Auto) 0.47 (0-0.5) Absolute Lymphs (auto) 3.40 (1.0-4.6) Absolute Monos (auto) 1.11 (0.0-1.3) Lymphocytes % 33.7 (24.0-44.0) % Monocytes % 11.0 (0.0-12.0) % Eosinophils % 4.7 (0.00-5.0) % Basophils % 0.4 (0.0-0.4) % Absolute Granulocytes 5.06 (1.4-6.9) Basophils # 0.04 (0-0.4) D-Dimer (215-500) ng/mL Sodium (137-145) mmol/L Potassium (3.5-5.1) mmol/L Chloride (98-107) mmol/L Carbon Dioxide (22-30) mmol/L Anion Gap (5-15) MEQ/L BUN (9-20) mg/dL Creatinine (0.66-1.25) mg/dL Estimated GFR ML/MIN Glucose (74-106) mg/dL Lactic Acid 2.0 (0.4-2.0) Calcium (8.4-10.2) mg/dL Total Bilirubin (0.2-1.3) mg/dL AST (17-59) U/L ALT (0-50) U/L Alkaline Phosphatase (38-126) U/L Serum Total Protein (6.3-8.2) g/dL Albumin (3.5-5.0) g/dL Prealbumin 19.44 (17.6-36.0) mg/dL 05/04/19 Range/Units 05:30 WBC (4.0-10.5) K/mm3 RBC (4.1-5.6) M/mm3 Hgb (12.5-18.0) gm/dl Hct (42-50) % MCV (78-100) fl MCH (26-32) pg MCHC (32-36) g/dl RDW (11.5-14.0) % Plt Count (150-450) K/mm3 MPV (6-9.5) fl Gran % (36.0-66.0) % Eos # (Auto) (0-0.5) Absolute Lymphs (auto) (1.0-4.6) Absolute Monos (auto) (0.0-1.3) Lymphocytes % (24.0-44.0) % Monocytes % (0.0-12.0) % Eosinophils % (0.00-5.0) % Basophils % (0.0-0.4) % Absolute Granulocytes (1.4-6.9) Basophils # (0-0.4) D-Dimer (215-500) ng/mL Sodium 140 (137-145) mmol/L Potassium 4.3 (3.5-5.1) mmol/L Chloride 103 (98-107) mmol/L Carbon Dioxide 31 H (22-30) mmol/L Anion Gap 9.5 (5-15) MEQ/L BUN 9 (9-20) mg/dL Creatinine 0.84 (0.66-1.25) mg/dL Estimated GFR > 60.0 ML/MIN Glucose 90 (74-106) mg/dL Lactic Acid (0.4-2.0) Calcium 9.3 (8.4-10.2) mg/dL Total Bilirubin (0.2-1.3) mg/dL AST (17-59) U/L ALT (0-50) U/L Alkaline Phosphatase (38-126) U/L Serum Total Protein (6.3-8.2) g/dL Albumin (3.5-5.0) g/dL Prealbumin (17.6-36.0) mg/dL - Radiology Impressions Radiology Exams & Impressions: Radiology Procedures Category Date Time Status VENOUS UNILAT/LIMITED EXTREMIT [US] Stat Exams 05/04/19 23:22 Completed Assessment/Plan (1) Elevated d-dimer Current Visit: Yes Status: Resolved Code(s): R79.89 - OTHER SPECIFIED ABNORMAL FINDINGS OF BLOOD CHEMISTRY (2) Ulcer of right leg Current Visit: Yes Status: Chronic Qualifiers: Non-pressure ulcer stage: unspecified non-pressure ulcer stage Qualified Code(s): L97.919 - Non-pressure chronic ulcer of unspecified part of right lower leg with unspecified severity Code(s): L97.919 - NON-PRS CHRONIC ULC UNSP PRT OF R LOW LEG W UNSP SEVERITY (3) Cervical osteoarthritis Current Visit: Yes Status: Chronic Qualifiers: Spinal osteoarthritis complication: without myelopathy or radiculopathy Qualified Code(s): M47.812 - Spondylosis without myelopathy or radiculopathy, cervical region Code(s): M47.812 - SPONDYLOSIS W/O MYELOPATHY OR RADICULOPATHY, CERVICAL REGION Hospital Summary - Hospital Course Hospital Course: Last Vital Signs Temp 98 F 05/04/19 11:04 Pulse 64 05/04/19 11:04 Resp 20 05/04/19 11:04 BP 148/80 05/04/19 11:04 Pulse Ox 96 05/04/19 11:04 Allergies No Known Drug Allergies Allergy (Verified 05/03/19 18:51) Active Medications Acetaminophen (Tylenol 325 Mg) 650 mg PO Q4H PRN PRN PRN Reason: PAIN, FEVER, HEADACHE Stop: 06/02/19 23:21 Alprazolam (Xanax 1 Mg) 2 mg PO TID PRN PRN PRN Reason: ANXIETY Stop: 06/03/19 07:04 Enoxaparin Sodium (Enoxaparin Sodium) 90 mg 1 mg/kg (90 mg) SQ Q12HT RODRIGUEZ Stop: 06/02/19 23:21 Last Admin: 05/04/19 11:43 Dose: Not Given Furosemide (Lasix 40 Mg) 40 mg PO DAILY RODRIGUEZ Stop: 06/03/19 09:59 Last Admin: 05/04/19 09:47 Dose: 40 mg Gabapentin (Neurontin 400 Mg) 1,200 mg PO TID RODRIGUEZ Stop: 06/03/19 09:59 Last Admin: 05/04/19 09:47 Dose: 1,200 mg Hydromorphone HCl (Dilaudid 2 Mg Injection) 0.5 mg IV Q4H PRN PRN PRN Reason: PAIN Stop: 05/08/19 23:21 Last Admin: 05/04/19 07:37 Dose: 0.5 mg Ceftriaxone Sodium/Dextrose (Rocephin 1 Gm-D5w 50 Ml Bag) 1 g in 50 mls @ 100 mls/hr IV Q24H RODRIGUEZ Stop: 06/03/19 19:59 Sodium Chloride (Sodium Chloride 0.9% 1000 Ml) 1,000 mls @ 50 mls/hr IV .Q20H RODRIGUEZ Stop: 06/02/19 23:21 Ibuprofen (Motrin 400 Mg) 400 mg PO Q6H PRN PRN PRN Reason: PAIN Stop: 06/03/19 07:04 Ondansetron HCl (Zofran 4 Mg/2 Ml Vial) 4 mg IV Q6H PRN PRN PRN Reason: NAUSEA/VOMITING Stop: 06/02/19 23:21 Last Admin: 05/04/19 00:36 Dose: 4 mg Prednisone (Deltasone 5 Mg) 5 mg PO DAILY RODRIGUEZ Stop: 06/03/19 09:59 Last Admin: 05/04/19 09:47 Dose: 5 mg Simvastatin (Zocor 20mg) 20 mg PO DAILY RODRIGUEZ Stop: 06/03/19 09:59 Last Admin: 05/04/19 09:48 Dose: 20 mg Tamsulosin HCl (Flomax 0.4 Mg) 0.4 mg PO HS [facility] Stop: 06/03/19 21:59 Last Admin: 05/04/19 00:58 Dose: 0.4 mg Intake & Output 05/04/19 05/05/19 11:59 11:59 Intake Total 1184 Output Total 2300 Balance -1116 Weight 91.2 kg Orders 05/04/19 01:43 [employer]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 ROUTINE PT Screen per Nursing Assess ONCE 05/04/19 07:05 Alprazolam 1 mg [Xanax 1 mg] 2 mg PO TID PRN PRN Ibuprofen 400 mg [Motrin 400 mg] 400 mg PO Q6H PRN PRN 05/04/19 10:00 Furosemide 40 mg [Lasix 40 MG] 40 mg PO DAILY Gabapentin 400 mg [Neurontin 400 MG] 1,200 mg PO TID Prednisone 5 mg [Deltasone 5 mg] 5 mg PO DAILY Simvastatin 20Mg [Zocor 20Mg] 20 mg PO DAILY 05/04/19 22:00 Tamsulosin HCl 0.4 mg [Flomax 0.4 MG] 0.4 mg PO HS Lab Tests 05/03/19 05/03/19 05/03/19 19:30 19:30 19:30 WBC 8.1 RBC 3.96 L Hgb 13.0 Hct 38.6 L MCV 97.5 MCH 32.8 H MCHC 33.7 RDW 12.9 Plt Count 210 MPV 9.8 H Gran % 65.5 Eos # (Auto) 0.32 Absolute Lymphs (auto) 1.85 Absolute Monos (auto) 0.57 Lymphocytes % 23.0 L Monocytes % 7.1 Eosinophils % 4.0 Basophils % 0.4 Absolute Granulocytes 5.29 Basophils # 0.03 D-Dimer 750 H* Sodium 138 Potassium 4.1 Chloride 101 Carbon Dioxide 28 Anion Gap 12.4 BUN 10 Creatinine 0.83 Estimated GFR > 60.0 Glucose 168 H Lactic Acid Calcium 9.3 Total Bilirubin 0.50 AST 32 ALT 22 Alkaline Phosphatase 50 Serum Total Protein 7.2 Albumin 3.8 Prealbumin 05/03/19 05/04/19 05/04/19 19:38 05:00 05:30 WBC 10.1 RBC 3.70 L Hgb 12.2 L Hct 36.4 L MCV 98.4 MCH 32.9 H MCHC 33.5 RDW 12.9 Plt Count 189 MPV 9.2 Gran % 50.2 Eos # (Auto) 0.47 Absolute Lymphs (auto) 3.40 Absolute Monos (auto) 1.11 Lymphocytes % 33.7 Monocytes % 11.0 Eosinophils % 4.7 Basophils % 0.4 Absolute Granulocytes 5.06 Basophils # 0.04 D-Dimer Sodium Potassium Chloride Carbon Dioxide Anion Gap BUN Creatinine Estimated GFR Glucose Lactic Acid 2.0 Calcium Total Bilirubin AST ALT Alkaline Phosphatase Serum Total Protein Albumin Prealbumin 19.44 05/04/19 05:30 WBC RBC Hgb Hct MCV MCH MCHC RDW Plt Count MPV Gran % Eos # (Auto) Absolute Lymphs (auto) Absolute Monos (auto) Lymphocytes % Monocytes % Eosinophils % Basophils % Absolute Granulocytes Basophils # D-Dimer Sodium 140 Potassium 4.3 Chloride 103 Carbon Dioxide 31 H Anion Gap 9.5 BUN 9 Creatinine 0.84 Estimated GFR > 60.0 Glucose 90 Lactic Acid Calcium 9.3 Total Bilirubin AST ALT Alkaline Phosphatase Serum Total Protein Albumin Prealbumin - Vitals & Intake/Output Vital Signs: Vital Signs Temperature 98 F 05/04/19 11:04 Pulse Rate 64 05/04/19 11:04 Respiratory Rate 20 05/04/19 11:04 Blood Pressure 148/80 05/04/19 11:04 O2 Sat by Pulse Oximetry 96 05/04/19 11:04 Intake & Output: Intake & Output 05/02/19 05/03/19 05/04/19 05/05/19 11:59 11:59 11:59 11:59 Intake Total 1184 Output Total 2300 Balance -1116 Weight 91.2 kg - Lab Result Diagrams: 05/04/19 05:30 05/04/19 05:30 Lab Results-Last 24 Hrs: Lab Results-Last 24 Hours 05/03/19 05/03/19 05/03/19 Range/Units 19:30 19:30 19:30 WBC 8.1 (4.0-10.5) K/mm3 RBC 3.96 L (4.1-5.6) M/mm3 Hgb 13.0 (12.5-18.0) gm/dl Hct 38.6 L (42-50) % MCV 97.5 (78-100) fl MCH 32.8 H (26-32) pg MCHC 33.7 (32-36) g/dl RDW 12.9 (11.5-14.0) % Plt Count 210 (150-450) K/mm3 MPV 9.8 H (6-9.5) fl Gran % 65.5 (36.0-66.0) % Eos # (Auto) 0.32 (0-0.5) Absolute Lymphs (auto) 1.85 (1.0-4.6) Absolute Monos (auto) 0.57 (0.0-1.3) Lymphocytes % 23.0 L (24.0-44.0) % Monocytes % 7.1 (0.0-12.0) % Eosinophils % 4.0 (0.00-5.0) % Basophils % 0.4 (0.0-0.4) % Absolute Granulocytes 5.29 (1.4-6.9) Basophils # 0.03 (0-0.4) D-Dimer 750 H* (215-500) ng/mL Sodium 138 (137-145) mmol/L Potassium 4.1 (3.5-5.1) mmol/L Chloride 101 (98-107) mmol/L Carbon Dioxide 28 (22-30) mmol/L Anion Gap 12.4 (5-15) MEQ/L BUN 10 (9-20) mg/dL Creatinine 0.83 (0.66-1.25) mg/dL Estimated GFR > 60.0 ML/MIN Glucose 168 H (74-106) mg/dL Lactic Acid (0.4-2.0) Calcium 9.3 (8.4-10.2) mg/dL Total Bilirubin 0.50 (0.2-1.3) mg/dL AST 32 (17-59) U/L ALT 22 (0-50) U/L Alkaline Phosphatase 50 (38-126) U/L Serum Total Protein 7.2 (6.3-8.2) g/dL Albumin 3.8 (3.5-5.0) g/dL Prealbumin (17.6-36.0) mg/dL 05/03/19 05/04/19 05/04/19 Range/Units 19:38 05:00 05:30 WBC 10.1 (4.0-10.5) K/mm3 RBC 3.70 L (4.1-5.6) M/mm3 Hgb 12.2 L (12.5-18.0) gm/dl Hct 36.4 L (42-50) % MCV 98.4 (78-100) fl MCH 32.9 H (26-32) pg MCHC 33.5 (32-36) g/dl RDW 12.9 (11.5-14.0) % Plt Count 189 (150-450) K/mm3 MPV 9.2 (6-9.5) fl Gran % 50.2 (36.0-66.0) % Eos # (Auto) 0.47 (0-0.5) Absolute Lymphs (auto) 3.40 (1.0-4.6) Absolute Monos (auto) 1.11 (0.0-1.3) Lymphocytes % 33.7 (24.0-44.0) % Monocytes % 11.0 (0.0-12.0) % Eosinophils % 4.7 (0.00-5.0) % Basophils % 0.4 (0.0-0.4) % Absolute Granulocytes 5.06 (1.4-6.9) Basophils # 0.04 (0-0.4) D-Dimer (215-500) ng/mL Sodium (137-145) mmol/L Potassium (3.5-5.1) mmol/L Chloride (98-107) mmol/L Carbon Dioxide (22-30) mmol/L Anion Gap (5-15) MEQ/L BUN (9-20) mg/dL Creatinine (0.66-1.25) mg/dL Estimated GFR ML/MIN Glucose (74-106) mg/dL Lactic Acid 2.0 (0.4-2.0) Calcium (8.4-10.2) mg/dL Total Bilirubin (0.2-1.3) mg/dL AST (17-59) U/L ALT (0-50) U/L Alkaline Phosphatase (38-126) U/L Serum Total Protein (6.3-8.2) g/dL Albumin (3.5-5.0) g/dL Prealbumin 19.44 (17.6-36.0) mg/dL 05/04/19 Range/Units 05:30 WBC (4.0-10.5) K/mm3 RBC (4.1-5.6) M/mm3 Hgb (12.5-18.0) gm/dl Hct (42-50) % MCV (78-100) fl MCH (26-32) pg MCHC (32-36) g/dl RDW (11.5-14.0) % Plt Count (150-450) K/mm3 MPV (6-9.5) fl Gran % (36.0-66.0) % Eos # (Auto) (0-0.5) Absolute Lymphs (auto) (1.0-4.6) Absolute Monos (auto) (0.0-1.3) Lymphocytes % (24.0-44.0) % Monocytes % (0.0-12.0) % Eosinophils % (0.00-5.0) % Basophils % (0.0-0.4) % Absolute Granulocytes (1.4-6.9) Basophils # (0-0.4) D-Dimer (215-500) ng/mL Sodium 140 (137-145) mmol/L Potassium 4.3 (3.5-5.1) mmol/L Chloride 103 (98-107) mmol/L Carbon Dioxide 31 H (22-30) mmol/L Anion Gap 9.5 (5-15) MEQ/L BUN 9 (9-20) mg/dL Creatinine 0.84 (0.66-1.25) mg/dL Estimated GFR > 60.0 ML/MIN Glucose 90 (74-106) mg/dL Lactic Acid (0.4-2.0) Calcium 9.3 (8.4-10.2) mg/dL Total Bilirubin (0.2-1.3) mg/dL AST (17-59) U/L ALT (0-50) U/L Alkaline Phosphatase (38-126) U/L Serum Total Protein (6.3-8.2) g/dL Albumin (3.5-5.0) g/dL Prealbumin (17.6-36.0) mg/dL - Radiology Exams Ordered Rad Exams-Entire Visit: Radiology Procedures Category Date Time Status VENOUS UNILAT/LIMITED EXTREMIT [US] Stat Exams 05/04/19 23:22 Completed - Procedures and Test Procedures and Tests throughout Hospitalization: Therapy Orders & Screens 05/04/19 01:43 PT Screen per Nursing Assess ONCE Comment: Protocol Order Physician Instructions: Greater than 3 points order PT Admission Screenin Reason For Exam: Triggered on Admission Diagnosis: Cellulitis; Elevated D-Dimer Open Wound/Cellutlitis/Pressure Ulcers: Yes Acute Fx/ORIF/Change in wt bearing status: No Severe MUSCULOSKELETAL pain: No ADL Dysfunction: No Acute CVA w/Hemiparesis/Hemiplegia: No Decreased Functional Mobility/Strength: Yes Sprain/Strain: No Acute Post-op Mobility Dysfunction: No Total Points: 6 05/04/19 01:58 PT Eval & Treat ( Order) ROUTINE Reason for Eval:: right lower leg ulceration Diagnosis: Cellulitis; Elevated D-Dimer - Discharge Discharge Date: 05/04/19 Disposition: Home, Self-Care Condition: Stable Prescriptions: Continue Tamsulosin HCl 0.4 mg [Flomax 0.4 MG] 0.4 mg PO HS Prednisone 5 mg [Deltasone 5 mg] 5 mg PO DAILY Pravastatin Sodium 20 mg PO DAILY Gabapentin [Neurontin] 1,200 mg PO TID Ibuprofen 200 mg [Motrin 200 mg] 400 mg PO Q6HPRN PRN PRN Reason: Pain Furosemide 40 mg PO DAILY ALPRAZolam [Alprazolam] 2 mg PO TID PRN PRN PRN Reason: Anxiety Follow up with: ZEUS NEIL MD [Primary Care Provider] - 1 Week
--- NOTE | 2019-05-04 13:34 | XRAY ---
Exam: 3 view cervical spine series from 05/04/2019. Comparison: None. Indication: 68-year-old male with neck pain. Findings: AP, 2 lateral images, and an angled AP odontoid view were obtained. I see evidence of prior anterior surgical fusion at C5-C6 with a small anterior metallic plate and 4 adjoining screws. There is significant narrowing of the C5-C6 interspace height. There is mild to moderate posterior vertebral endplate spurring at C5-C6. In addition, there is other metallic orthopedic hardware within the upper cervical spine posteriorly on each side of midline. A curved metallic rolanda is seen posteriorly on the left extending from the lower aspect of C2 down to C5. 4 adjoining threaded pedicle screws are seen at this level on the left. I also note a pedicle screw with a fastener device on the right side posteriorly at both C2 and C3. There is evidence of prior multilevel laminectomy at C3-C6. Moderate diffuse degenerative changes are seen within the apophyseal/facet joints. There is mild narrowing of the C3-C4 interspace height with small anterior and posterior vertebral endplate spurs at this level. Minimal anterior vertebral endplate spurring is seen at C4-C5. Otherwise, the C2-C3 and C4-C5 disc space heights are well-maintained. Degenerative changes are seen at the preodontoid space. The bones are demineralized. I believe there is a well developed cervical rib on C7 on the right. There is elongation of the left C7 transverse process. Impression: 1. Extensive postsurgical changes are seen within the cervical spine with multilevel laminectomy of C3-C6, anterior surgical fusion at C5-C6, and partial posterior surgical fusion within the upper cervical spine on each side of midline, more extensive on the left than right. 2. No acute cervical spine fracture, AP traumatic subluxation, or prevertebral soft tissue swelling is seen. 3. Minimal posterior subluxation of C5 with respect to C4 on the lateral images. 4. Degenerative changes are seen within the cervical spine. 5. Well developed cervical rib on the right at C7. There is also elongation of the left C7 transverse process.
[2019-05-04 16:14] VITALS: BP 128/66; PULSE 82; O2SAT 97
[2019-05-04] MEDS ORDERED: ROCEPHIN 1 Gm-D5w 50 ml Bag** 1 G/50 ML IVPB IV SCH (20:00)
[2019-05-04] MEDS ORDERED: Flomax 0.4 MG PO SCH (22:00)
== END 2019-05-04 16:30 | disposition home or self-care (01) ==
LOC: ED 18:34 → MED SURG 23:18
PROVIDERS: ADMIT General Practice; ATTEND General Practice
DX: R79.89 Other specified abnormal findings of blood chemistry (principal); L97.919 Non-pressure chronic ulcer of unspecified part of right lower leg with unspecified severity; M47.812 Spondylosis without myelopathy or radiculopathy, cervical region; Z79.899 Other long term (current) drug therapy
CPT/HCPCS: 36000; 36415; 72040; 80048; 80053; 83605; 84134; 85025; 85379; 87040; 87070; 93971; 96360; 96365; 96372; 96374; 96375; 99285; 99291; G0378; J0696; J1170; J1650; J2405; Q0162; A9270-GY

== ENCOUNTER 2023-06-04 16:34 | Emergency (ER) | payer MEDICARE ==
[2023-06-04 16:46] VITALS: TEMP 97.4
[2023-06-04 18:47] LABS: Absolute Neutrophil Ct (ANC) 6.31 x10^3/uL (1.4-6.9); BASOPHIL % 0.5 % (0.0-0.4); Basophil (Absolute #) 0.04 x10^3/uL (0-0.4); Eosinophil (Absolute #) 0.35 x10^3/uL (0-0.5); Hematocrit 36.7 % (42-50); Hemoglobin 12.1 g/dL (12.5-18.0); IMMATURE GRAN # 0.08 x10^3u/L (0.00-0.03); IMMATURE GRAN % 0.9 % (0.00-0.4); Lymphocyte (Absolute #) 1.34 x10^3/uL (1.0-4.6); Lymphocytes % 15.3 % (24.0-44.0); Mean Cell Volume 97.1 fL (78-100); Mean Platelet Volume 10.5 fL (7.5-11.0); Monocyte (Absolute #) 0.66 x10^3/uL (0.0-1.3); Monocytes % 7.5 % (0.0-12.0); Neutrophil % 71.8 % (36.0-66.0); Platelet Count 230 x10^3/uL (150-450); Red Blood Count 3.78 x10^6/uL (4.1-5.6); Red Cell Distribution Width 12.9 % (11.5-14.0); White Blood Count 8.8 x10^3/uL (4.0-10.5)
[2023-06-04 19:00] LABS: ALBUMIN 3.6 g/dL (3.5-5.0); ALKALINE PHOSPHATASE 61 U/L (38-126); ANION GAP 14.2 MEQ/L (5-15); BLOOD UREA NITROGEN 13 mg/dL (9-20); CHLORIDE 103 mmol/L (98-107); Calcium 8.6 mg/dL (8.4-10.2); Carbon Dioxide 25 mmol/L (22-30); Creatinine 1 0.95 mg/dL (0.66-1.25); EST GLOMERULAR FILTRATION RATE > 60.0 ML/MIN; Glucose 120 mg/dL (74-106); Potassium 4.1 mmol/L (3.5-5.1); SGOT/AST 53 U/L (17-59); SGPT/ALT 39 U/L (0-50); SODIUM 138 mmol/L (137-145); Total Protein 6.9 g/dL (6.3-8.2)
[2023-06-04 19:01] LABS: INR 0.93 (0.8-3.0); PROTIME 10.2 SECONDS (9.4-12.5)
[2023-06-04 19:29] VITALS: BP 134/56; PULSE 59; RESP 15; O2SAT 96
--- NOTE | 2023-06-04 19:44 | ERPHSYRPT ---
- History of Present Illness Time Seen by Provider: 06/04/23 16:40 Source: patient, EMS Exam Limitations: no limitations Patient Subjective Stated Complaint: pt here for cellulitis to lower legs, worse to right lower, he was released from [facility] yesterday and placed on 2 antibotics. no fever Triage Nursing Assessment: pt arrived per ambulance, alert, resp easy, skin w/d/p. has redness and swelling to both legs, worse to right leg with some we eping,paralysis from waist down and uses a wc, Physician History: Patient is a 72-year-old white male who presents with right leg pain he was recently hospitalized at [facility] and released yesterday he noticed increased discoloration of the right lower leg. And is concerned. Method of Injury: unknown Occurred: yesterday Quality: aching Severity of Pain-Max: mild Severity of Pain-Current: mild Lower Extremities Pain: leg: right Modifying Factors: Improves With: nothing Associated Symptoms: none Allergies/Adverse Reactions: No Known Drug Allergies Allergy (Verified 06/04/23 16:40) Home Medications: Pravastatin Sodium 20 mg PO DAILY 09/14/15 [History] Prednisone 5 mg [Deltasone 5 mg] 5 mg PO DAILY 09/14/15 [History] Tamsulosin HCl 0.4 mg [Flomax 0.4 MG] 0.4 mg PO HS 09/14/15 [History] Gabapentin [Neurontin] 1,200 mg PO TID 12/31/16 [History] ALPRAZolam [Alprazolam] 2 mg PO TID PRN PRN 05/04/19 [History] Furosemide 40 mg PO DAILY 05/04/19 [History] Ibuprofen 200 mg [Motrin 200 mg] 400 mg PO Q6HPRN PRN 05/04/19 [History] Cephalexin Mh 500 mg [Keflex 500 mg] 500 mg PO TID 06/04/23 [History] Sulfamethoxazole/Trimethoprim [Sulfamethoxazole-Tmp Ds Tablet] 1 ea BID 06/04/23 [History] Hx Tetanus, Diphtheria Vaccination/Date Given: Yes Hx Influenza Vaccination/Date Given: Yes Hx Pneumococcal Vaccination/Date Given: No Immunizations Up to Date: Yes Travel Risk - International Travel Have you traveled outside of the country in past 3 weeks: No - Coronavirus Screening Are you exhibiting any of the following symptoms?: No Close contact with a COVID-19 positive Pt in past 14-21 Days: No - Vaccine Status Have you recieved a Covid-19 vaccination: No 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 - Review of Systems Constitutional: No Fever, No Chills Eyes: No Symptoms Ears, Nose, & Throat: No Symptoms Respiratory: No Cough, No Dyspnea Cardiac: No Chest Pain, No Edema, No Syncope Abdominal/Gastrointestinal: No Abdominal Pain, No Nausea, No Vomiting, No Di arrhea Genitourinary Symptoms: No Dysuria Musculoskeletal: No Back Pain, No Neck Pain Skin: No Rash Neurological: No Dizziness, No Focal Weakness, No Sensory Changes Psychological: No Symptoms Endocrine: No Symptoms All Other Systems: Reviewed and Negative - Past Medical History Pertinent Past Medical History: Yes Neurological History: Paralysis ENT History: No Pertinent History Cardiac History: No Pertinent History Respiratory History: Bronchitis Endocrine Medical History: No Pertinent History Musculoskeletal History: Other GI Medical History: No Pertinent History History: No Pertinent History Psycho-Social History: No Pertinent History Male Reproductive Disorders: No Pertinent History Other Medical History: 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 struck head on sink causing cervial fracture, 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; cellulitis - Past Surgical History Past Surgical History: Yes Neuro Surgical History: No Pertinent History Cardiac: No Pertinent History Respiratory: No Pertinent History Gastrointestinal: No Pertinent History Genitourinary: No Pertinent History Musculoskeletal: Other Male Surgical History: No Pertinent History Other Surgical History: spinal surgery, plate and screws right lower leg, ruptured disk surgery through neck - Social History Smoking Status: Former smoker Exposure to second hand smoke: Yes Alcohol Use: None Drug Use: none Patient Lives Alone: No Significant Family History: no pertinent family hx - Nursing Vital Signs Nursing Vital Signs: Initial Vital Signs Blood Pressure 117/46 06/04/23 16:32 O2 Sat by Pulse Oximetry 94 L 06/04/23 16:32 Pain Scale Pain Intensity 3 - Physical Exam General Appearance: alert Eyes, Ears, Nose, Throat Exam: moist mucous membranes Neck Exam: non-tender, supple Cardiovascular/Respiratory Exam: chest non-tender, normal breath sounds, regular rate/rhythm, no respiratory distress Gastrointestinal/Abdominal Exam: non-tender, guarding Back Exam: normal inspection, No vertebral tenderness Neuro/Tendon Exam: normal sensation, normal motor functions Mental Status Exam: alert, oriented x 3, cooperative Skin Exam: warm, dry, other (Dark ecchymoses likely area of the right lower leg where an Unna boot had been placed recently.) SpO2: 96 - Course Nursing assessment & vital signs reviewed: Yes Ordered Tests: Active Orders 24 hr Category Date Time Status CBC W DIFF Stat Lab 06/04/23 18:45 Completed CMP Stat Lab 06/04/23 18:45 Completed PROTIME WITH INR Stat Lab 06/04/23 18:45 Completed Lab/Rad Data: Laboratory Result Diagrams 06/04/23 18:45 06/04/23 18:45 Laboratory Results 06/04/23 06/04/23 06/04/23 Range/Units 18:45 18:45 18:45 WBC 8.8 (4.0-10.5) x10^3/uL RBC 3.78 L (4.1-5.6) x10^6/uL Hgb 12.1 L (12.5-18.0) g/dL Hct 36.7 L (42-50) % MCV 97.1 (78-100) fL MCH 32.0 (26-32) pg MCHC 33.0 (32-36) g/dL RDW 12.9 (11.5-14.0) % Plt Count 230 (150-450) x10^3/uL MPV 10.5 (7.5-11.0) fL Gran % 71.8 H (36.0-66.0) % Immature Gran % (Auto) 0.9 H (0.00-0.4) % Nucleat RBC Rel Count 0.0 (0.00-0.1) % Eos # (Auto) 0.35 (0-0.5) x10^3/uL Immature Gran # (Auto) 0.08 H (0.00-0.03) x10^3u/L Absolute Lymphs (auto) 1.34 (1.0-4.6) x10^3/uL Absolute Monos (auto) 0.66 (0.0-1.3) x10^3/uL Absolute Nucleated RBC 0.00 (0.00-0.01) x10^3u/L Lymphocytes % 15.3 L (24.0-44.0) % Monocytes % 7.5 (0.0-12.0) % Eosinophils % 4.0 (0.00-5.0) % Basophils % 0.5 (0.0-0.4) % Absolute Granulocytes 6.31 (1.4-6.9) x10^3/uL Basophils # 0.04 (0-0.4) x10^3/uL PT 10.2 (9.4-12.5) SECONDS INR 0.93 (0.8-3.0) Sodium 138 (137-145) mmol/L Potassium 4.1 (3.5-5.1) mmol/L Chloride 103 (98-107) mmol/L Carbon Dioxide 25 (22-30) mmol/L Anion Gap 14.2 (5-15) MEQ/L BUN 13 (9-20) mg/dL Creatinine 0.95 (0.66-1.25) mg/dL Estimated GFR > 60.0 ML/MIN Glucose 120 H (74-106) mg/dL Calcium 8.6 (8.4-10.2) mg/dL Total Bilirubin 0.50 (0.2-1.3) mg/dL AST 53 (17-59) U/L ALT 39 (0-50) U/L Alkaline Phosphatase 61 (38-126) U/L Serum Total Protein 6.9 (6.3-8.2) g/dL Albumin 3.6 (3.5-5.0) g/dL - Progress Progress: improved Medical Desision Making - Diagnostic Testing Diagnostic test were ordered, analyzed, and reviewed by me: Yes - Risk of complications Minimal Risk: Minimal risk of morbidity - Departure Departure Disposition: Home Clinical Impression: Petechiae or ecchymoses Condition: Stable Critical Care Time: No Referrals: ZEUS NEIL MD [Primary Care Provider] - Follow up/PCP as directed
== END 2023-06-04 20:43 | disposition home or self-care (01) ==
LOC: ED 16:34
DX: R23.3 Spontaneous ecchymoses (principal); Z79.52 Long term (current) use of systemic steroids; Z79.899 Other long term (current) drug therapy; Z28.310 Unvaccinated for COVID-19
CPT/HCPCS: 36415; 80053; 85025; 85610; 99283

== ENCOUNTER 2024-10-18 04:52 | Emergency (ER) | payer MEDICARE ==
[2024-10-18 05:12] VITALS: RESP 18; TEMP 98.1
--- NOTE | 2024-10-18 05:22 | ERPHSYRPT ---
<ELEAZAR GRIFFITHS. - Last Filed: 10/18/24 07:33> - History of Present Illness Source: patient Exam Limitations: no limitations Patient Subjective Stated Complaint: pt states he has increased swelling in his legs, worse on the rt side. Triage Nursing Assessment: pt alert and oriented, answers questions approp. pt arrive per ambulance and transfers to stretcher with assist of 3. respirations nonlabored. skin warm and dry. pitting edema noted to bilat feet and ankles. 3+ to rt foot, 2+ to lt foot. open area to rt inner ankle- pt states [place] [facility] Timing/Duration: yesterday Activities at Onset: rest Severity of Dyspnea-Max: moderate Severity of Dyspnea-Current: moderate Possible Cause: chronic episodes Modifying Factors: Improves With: albuterol inhaler. Worsens With: exertion Associated Symptoms: intermittent, cough, edema, insomnia, ankle swelling, calf pain (right), leg swelling (right), No chest pain/discomfort, No fever, No hemoptysis Hx Tetanus, Diphtheria Vaccination/Date Given: Yes Hx Influenza Vaccination/Date Given: No Hx Pneumococcal Vaccination/Date Given: No Immunizations Up to Date: Yes <CHAD BOWER - Last Filed: 10/27/24 21:52> - History of Present Illness Time Seen by Provider: 10/18/24 05:22 Physician History: The patient presents with leg swelling and difficulty breathing. He experiences leg swelling that worsens with prolonged sitting, which has been present since at least last night. The swelling increased after staying up late and waking up at 2 PM. There is pain upon palpation of the legs, but no history of blood clots. He has difficulty breathing and has been coughing up yellow mucus. These respiratory symptoms have been ongoing, and he expresses concern about possible pulmonary congestion or infection. He recalls being told that his lungs were filling with blood, though he is uncertain about this diagnosis. He recalls being informed that his heart is functioning at 40% capacity, which he associates with heart failure. He underwent a heart catheterization years ago due to chest pain, which was normal at that time. He has a history of a neck injury from a fall 12 years ago, requiring four surgeries and resulting in a titanium plate in his neck. He also mentions a 'big knot' in the middle of his spine, which he attributes to something popping out, leading to frequent leaning over while sitting in a wheelchair. (CHAD BOWER) Allergies/Adverse Reactions: No Known Drug Allergies Allergy (Verified 06/04/23 16:40) Home Medications: Pravastatin Sodium 20 mg PO DAILY 09/14/15 [History] Prednisone 5 mg [Deltasone 5 mg] 5 mg PO DAILY 09/14/15 [History] Tamsulosin HCl 0.4 mg [Flomax 0.4 MG] 0.4 mg PO HS 09/14/15 [History] Gabapentin [Neurontin] 1,200 mg PO TID 12/31/16 [History] ALPRAZolam [Alprazolam] 2 mg PO TID PRN PRN 05/04/19 [History] Furosemide 40 mg PO DAILY 05/04/19 [History] Ibuprofen 200 mg [Motrin 200 mg] 400 mg PO Q6HPRN PRN 05/04/19 [History] Cephalexin Mh 500 mg [Keflex 500 mg] 500 mg PO TID 06/04/23 [History] Sulfamethoxazole/Trimethoprim [Sulfamethoxazole-Tmp Ds Tablet] 1 ea BID 06/04/23 [History] Travel Risk - International Travel Have you traveled outside of the country in past 3 weeks: No - Emerging Infectious Disease Are you exhibiting symptoms associated with any current EIDs: No <CHAD BOWER - Last Filed: 10/27/24 21:52> - Review of Systems All Other Systems: Reviewed and Negative <CHAD BOWER - Last Filed: 10/27/24 21:52> - Past Medical History Pertinent Past Medical History: Yes Neurological History: Paralysis ENT History: No Pertinent History Cardiac History: Coronary Artery Disease Respiratory History: Bronchitis Endocrine Medical History: No Pertinent History Musculoskeletal History: Other GI Medical History: No Pertinent History History: No Pertinent History Psycho-Social History: No Pertinent History Male Reproductive Disorders: No Pertinent History Other Medical History: 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 states heart at 40% - Past Surgical History Past Surgical History: Yes Neuro Surgical History: No Pertinent History Cardiac: No Pertinent History Respiratory: No Pertinent History Gastrointestinal: No Pertinent History Genitourinary: No Pertinent History Musculoskeletal: Other Male Surgical History: No Pertinent History Other Surgical History: spinal surgery, plate and screws right lower leg, ruptured disk surgery through neck Significant Family History: no pertinent family hx - Social History Smoking Status: Former smoker Exposure to second hand smoke: Yes Alcohol Use: None Drug Use: none Patient Lives Alone: No - Social Determinants of Health Will the patient participate in the screening: Yes Do you worry about a steady place to live?: No Do you have any problems with any of the following?: No known problems In the past 12 months,have you had to go without utilities?: No Transportation Issues: No Has anyone in your support network made you feel unsafe?: No Have you or anyone in your house had to go without enough: No <CHAD BOWER - Last Filed: 10/27/24 21:52> - Physical Exam General Appearance: no apparent distress Eye Exam: eyes nml inspection Ears, Nose, Throat Exam: hearing grossly normal Neck Exam: normal inspection, supple, full range of motion Respiratory Exam: airway intact, crackles/rales (faint), No respiratory distress Cardiovascular/Chest Exam: normal heart sounds, regular rate/rhythm Abdominal/Gastrointestinal Exam: soft, No tenderness, No distention Extremity Exam: calf tenderness (right), swelling (RLE) Neurologic Exam: alert, oriented x 3, cooperative Skin Exam: other (chronic right foot wound with drainage, no surrounding erythema) SpO2 Interpretation: normal SpO2: 95 O2 Delivery: Room Air <CHAD BOWER - Last Filed: 10/27/24 21:52> - Nursing Vital Signs Nursing Vital Signs: Initial Vital Signs Temperature 98.1 F 10/18/24 04:56 Pulse Rate 60 10/18/24 04:56 Respiratory Rate 18 10/18/24 04:56 Blood Pressure 165/80 10/18/24 04:56 O2 Sat by Pulse Oximetry 95 10/18/24 04:56 Pain Scale Pain Intensity 5 - Course Nursing assessment & vital signs reviewed: Yes <CHAD BOWER - Last Filed: 10/27/24 21:52> Ordered Tests: Medication Summary Discontinued Medications Generic Name Dose Route Start Last Admin Trade Name Freq PRN Reason Stop Dose Admin Furosemide 40 mg 10/18/24 05:23 10/18/24 06:16 Furosemide 40 Mg/4 Ml Vial IV 10/18/24 05:24 40 mg STAT ONE Administration Furosemide Confirm 10/18/24 06:15 Furosemide 40 Mg/4 Ml Vial Administered 10/18/24 06:16 Dose 40 mg .ROUTE .STK-MED ONE Lab/Rad Data: Laboratory Result Diagrams 10/18/24 05:44 10/18/24 05:44 Laboratory Results 10/18/24 10/18/24 10/18/24 Range/Units 06:00 05:44 05:44 WBC (4.23-9.07) x10^3/uL RBC (4.63-6.08) x10^6/uL Hgb (13.7-17.5) g/dL Hct (40.1-51.0) % MCV (79.0-92.2) fL MCH (25.7-32.2) pg MCHC (32.3-36.5) g/dL RDW (11.6-14.4) % Plt Count (163-337) x10^3/uL MPV (9.4-12.4) fL Gran % (34.0-67.9) % Immature Gran % (Auto) (0.001-0.429) % Nucleat RBC Rel Count (0.00-0.2) % Eos # (Auto) (0.04-0.54) x10^3/uL Immature Gran # (Auto) (0.001-0.031) x10^3u/L Absolute Lymphs (auto) (1.32-3.57) x10^3/uL Absolute Monos (auto) (0.30-0.82) x10^3/uL Absolute Nucleated RBC (0.00-0.012) x10^3u/L Lymphocytes % (21.8-53.1) % Monocytes % (5.3-12.2) % Eosinophils % (0.8-7.0) % Basophils % (0.2-1.2) % Absolute Granulocytes (1.78-5.38) x10^3/uL Basophils # (0.01-0.08) x10^3/uL ESR (0-15) mm/hr Sodium (135-145) mmol/L Potassium (3.5-5.1) mmol/L Chloride (98-107) mmol/L Carbon Dioxide (22-30) mmol/L Anion Gap (5-15) MEQ/L BUN (9-20) mg/dL Creatinine (0.66-1.25) mg/dL Estimated GFR ML/MIN Glucose (74-106) mg/dL Lactic Acid 0.8 (0.4-2.0) Calcium (8.4-10.2) mg/dL Magnesium (1.6-2.3) mg/dL Total Bilirubin (0.2-1.3) mg/dL AST (17-59) U/L ALT (0-50) U/L Alkaline Phosphatase (38-126) U/L Troponin I 0.012 (0.000-0.033) ng/mL NT-Pro-B Natriuret Pep (<300) pg/mL Serum Total Protein (6.3-8.2) g/dL Albumin (3.5-5.0) g/dL Influenza Type A Ag NEGATIVE (NEGATIVE) Influenza Type B Ag NEGATIVE (NEGATIVE) RSV (PCR) NEGATIVE (NEGATIVE) SARS-CoV-2 (PCR) NEGATIVE (NEGATIVE) 10/18/24 10/18/24 10/18/24 Range/Units 05:44 05:44 05:44 WBC 9.4 H (4.23-9.07) x10^3/uL RBC 3.98 L (4.63-6.08) x10^6/uL Hgb 13.0 L (13.7-17.5) g/dL Hct 37.9 L (40.1-51.0) % MCV 95.2 H (79.0-92.2) fL MCH 32.7 H (25.7-32.2) pg MCHC 34.3 (32.3-36.5) g/dL RDW 12.4 (11.6-14.4) % Plt Count 210 (163-337) x10^3/uL MPV 9.5 (9.4-12.4) fL Gran % 41.9 (34.0-67.9) % Immature Gran % (Auto) 0.2 (0.001-0.429) % Nucleat RBC Rel Count 0.0 (0.00-0.2) % Eos # (Auto) 1.06 H (0.04-0.54) x10^3/uL Immature Gran # (Auto) 0.02 (0.001-0.031) x10^3u/L Absolute Lymphs (auto) 3.21 (1.32-3.57) x10^3/uL Absolute Monos (auto) 1.09 H (0.30-0.82) x10^3/uL Absolute Nucleated RBC 0.00 (0.00-0.012) x10^3u/L Lymphocytes % 34.3 (21.8-53.1) % Monocytes % 11.6 (5.3-12.2) % Eosinophils % 11.3 H (0.8-7.0) % Basophils % 0.7 (0.2-1.2) % Absolute Granulocytes 3.91 (1.78-5.38) x10^3/uL Basophils # 0.07 (0.01-0.08) x10^3/uL ESR 2 (0-15) mm/hr Sodium 137 (135-145) mmol/L Potassium 3.8 (3.5-5.1) mmol/L Chloride 99 (98-107) mmol/L Carbon Dioxide 33 H (22-30) mmol/L Anion Gap 8.8 (5-15) MEQ/L BUN 16 (9-20) mg/dL Creatinine 0.99 (0.66-1.25) mg/dL Estimated GFR 80.4 ML/MIN Glucose 94 (74-106) mg/dL Lactic Acid (0.4-2.0) Calcium 9.9 (8.4-10.2) mg/dL Magnesium 1.9 (1.6-2.3) mg/dL Total Bilirubin 0.50 (0.2-1.3) mg/dL AST 44 (17-59) U/L ALT 26 (0-50) U/L Alkaline Phosphatase 66 (38-126) U/L Troponin I (0.000-0.033) ng/mL NT-Pro-B Natriuret Pep 455 (<300) pg/mL Serum Total Protein 6.9 (6.3-8.2) g/dL Albumin 4.2 (3.5-5.0) g/dL Influenza Type A Ag (NEGATIVE) Influenza Type B Ag (NEGATIVE) RSV (PCR) (NEGATIVE) SARS-CoV-2 (PCR) (NEGATIVE) - Progress Progress: improved Air Movement: fair <ELEAZAR GRIFFITHS - Last Filed: 10/18/24 07:33> - Progress Blood Culture(s) Obtained: No Antibiotics given: No Counseled pt/family regarding: diagnosis, need for follow-up, rad results <CHAD BOWER - Last Filed: 10/27/24 21:52> - Progress Progress Note: Ultrasound was done. There is no occlusive findings.I think the patient just has dependent edema. According to his history he had his legs in a dependent position for most the day yesterday and a lot of swelling. Whenever he puts them up it goes down. 10/18/24 07:30 (ELEAZAR GRIFFITHS) Medical Desision Making - Diagnostic Testing Diagnostic test were ordered, analyzed, and reviewed by me: Yes - Risk of complications Minimal Risk: Minimal risk of morbidity Low Risk: Low risk of morbidity from additional dx testing or treatment <ELEAZAR GRIFFITHS - Last Filed: 10/18/24 07:33> - Departure Departure Disposition: Home Critical Care Time: No <ELEAZAR GRIFFITHS - Last Filed: 10/18/24 07:33> <CHAD BOWER - Last Filed: 10/27/24 21:52> - Departure Clinical Impression: Dependent edema Condition: Stable Referrals: ZEUS NEIL MD [Primary Care Provider] - Follow up/PCP as directed Instructions: Dependent Edema (DC)
[2024-10-18 05:49] LABS: Absolute Neutrophil Ct (ANC) 3.91 x10^3/uL (1.78-5.38); BASOPHIL % 0.7 % (0.2-1.2); Basophil (Absolute #) 0.07 x10^3/uL (0.01-0.08); Eosinophil % 11.3 % (0.8-7.0); Eosinophil (Absolute #) 1.06 x10^3/uL (0.04-0.54); Hematocrit 37.9 % (40.1-51.0); IMMATURE GRAN # 0.02 x10^3u/L (0.001-0.031); IMMATURE GRAN % 0.2 % (0.001-0.429); Lymphocyte (Absolute #) 3.21 x10^3/uL (1.32-3.57); Lymphocytes % 34.3 % (21.8-53.1); Mean Cell Volume 95.2 fL (79.0-92.2); Mean Corpuscular Hemoglobin 32.7 pg (25.7-32.2); Mean Corpuscular Hgb Concent. 34.3 g/dL (32.3-36.5); Mean Platelet Volume 9.5 fL (9.4-12.4); Monocyte (Absolute #) 1.09 x10^3/uL (0.30-0.82); Monocytes % 11.6 % (5.3-12.2); Neutrophil % 41.9 % (34.0-67.9); Platelet Count 210 x10^3/uL (163-337); Red Blood Count 3.98 x10^6/uL (4.63-6.08); Red Cell Distribution Width 12.4 % (11.6-14.4); White Blood Count 9.4 x10^3/uL (4.23-9.07)
[2024-10-18 06:05] LABS: Potassium 3.8 mmol/L (3.5-5.1)
[2024-10-18 06:12] LABS: ALBUMIN 4.2 g/dL (3.5-5.0); BILIRUBIN,TOTAL 0.5 mg/dL (0.2-1.3); Calcium 9.9 mg/dL (8.4-10.2); Creatinine 1 0.99 mg/dL (0.66-1.25); EST GLOMERULAR FILTRATION RATE 80.4 ML/MIN; MAGNESIUM 1.9 mg/dL (1.6-2.3); Total Protein 6.9 g/dL (6.3-8.2)
[2024-10-18] MEDS ORDERED: Lasix 40 MG/4 ML ONE (06:15)
[2024-10-18] MEDS: Lasix 40 MG/4 ML IV ONE (06:16)
[2024-10-18 06:19] LABS: ANION GAP 8.8 MEQ/L (5-15)
[2024-10-18 06:26] LABS: INFLUENZA A NEGATIVE (NEGATIVE); INFLUENZA B NEGATIVE (NEGATIVE); RESPIRATORY SYNCTIAL VIRUS NEGATIVE (NEGATIVE); SARS-CoV-2 Xpert Express NEGATIVE (NEGATIVE)
--- NOTE | 2024-10-18 07:04 | XRAY ---
CLINICAL HISTORY: sob, RLE swelling COMPARISON: None. TECHNIQUE: Contiguous axial images were obtained from the neck base through the upper abdomen without contrast. In addition, sagittal and coronal reconstructions were performed to potentially increase the sensitivity for the detection of disease. CT scan was performed according to ALARA (as low as reasonable achievable). FINDINGS: The lungs are clear, with no focal areas of consolidation. No pulmonary nodules are seen. The central airways are patent. There are no pleural effusions. No pneumothorax is seen. Few calcified mediastinal and right hilar lymph nodes are noted, likely representing old granulomatous disease. The thyroid is unremarkable. The heart is of normal size and configuration. Calcifications are noted in the aortic arch, descending thoracic aorta and coronary arteries. Degenerative changes are noted in the visualized spine. Imaged portions of the upper abdomen reveal multiple gallbladder calculi measuring approximately 4-5 mm. IMPRESSION: 1. Calcified mediastinal and right hilar lymph nodes, likely representing old granulomatous disease. 2. Multiple gallbladder calculi. 3. No active pulmonary disease. Electronically Signed by: Behzad Hinojosa MD. (10/18/2024 06:59:39 EST)
[2024-10-18 07:50] VITALS: BP 155/72; PULSE 62
--- NOTE | 2024-10-18 08:52 | XRAY ---
Indication: Right leg swelling and pain. 2-dimensional sonogram and color Doppler imaging major venous vessels right leg performed. Comparison: May 04, 2019 Lower leg limited due to overlying soft tissue swelling. No thrombus seen in the remaining examined deep venous vessels right leg including greater saphenous vein. Patent veins demonstrate normal compressibility and normal venous waveforms. Impression: Lower leg not well evaluated. Remaining right leg grossly negative for DVT. Comment: Preliminary report was given.
[2024-10-27 21:52] VITALS: O2SAT 95
== END 2024-10-18 07:40 | disposition home or self-care (01) ==
LOC: ED 04:52
DX: R60.9 Edema, unspecified (principal); M79.89 Other specified soft tissue disorders; M79.661 Pain in right lower leg; R05.9 Cough, unspecified; Z79.899 Other long term (current) drug therapy; Z86.79 Personal history of other diseases of the circulatory system
CPT/HCPCS: 0241U; 36415; 71250; 80053; 83605; 83735; 83880; 84484; 85025; 85652; 93971; 96374; 99285; J1940